=== PATIENT | female | born 1980 | race Caucasian/White ===

== ENCOUNTER 2019-12-07 16:56 | Emergency (ER) | payer OTHER, SELFPAY ==
[2019-12-07 17:06] VITALS: BP 119/76; PULSE 93; RESP 20; TEMP 37.4; O2SAT 98
--- NOTE | 2019-12-07 17:17 | DI.US.S_ITS ---
PROCEDURE: US ABDOMEN LIMITED INDICATIONS: RIGHT UPPER QUADRANT PAIN TECHNIQUE: Real-time focused scanning was performed of the abdomen, with image documentation. COMPARISON: [facility], CT, ABDOMEN/PELVIS WITH CONTRAST, 02/26/2016, 11:11. FINDINGS: The liver is normal in size. No focal liver lesions are identified. The echogenicity of the liver is symmetric when compared to the right kidney. No intrahepatic or extrahepatic biliary dilatation is identified. The common bile duct measures 4 mm in diameter. The gallbladder is normal in size without cholelithiasis. Borderline gallbladder wall thickening is present. There is no pericholecystic fluid. The patient did not exhibit a positive sonographic Dunaway sign. The pancreas is within normal limits. Imaged portions of the right kidney are unremarkable, but not adequately evaluated. There is no free fluid within the right upper quadrant. IMPRESSION: No cholelithiasis or convincing evidence of acute cholecystitis. Dictated by: Feng Guadalupe M.D. on 12/07/2019 at 16:48 Approved by: Feng Guadalupe M.D. on 12/07/2019 at 16:49
--- NOTE | 2019-12-07 17:21 | ED_ITS ---
HPI - Abdominal Pain <CHIO Allen - Last Filed: 12/07/19 18:54> General Chief Complaint: Abdominal Pain Stated Complaint: Abdominal pain for 5 weeks Time Seen by Provider: 12/07/19 17:08 Source: patient Mode of arrival: Ambulatory Limitations: no limitations History of Present Illness HPI narrative: The patient is a 39 year female nonsmoker who denies pertinent medical or surgical history presents with a chief complaint of right upper quadrant pain. She states has been going on for several weeks, but has recently become much worse. She states that she has nausea no vomiting, no diarrhea. She states her right upper quadrant pain is much worse after eating. She states that she is nauseous, but no vomiting. She states she has lost 10 or 15 lb recently because of inability to eat. She is concerned about her gallbladder as her parents have both had their gallbladders removed. She denies any fevers, but complains of slight muscle aches and chills. Related Data Previous Rx's Medication Instructions Recorded ondansetron 4 mg PO Q6H PRN #20 tab 12/07/19 tramadol 50 mg PO TID PRN #7 tab 12/07/19 Allergies Allergy/AdvReac Type Severity Reaction Status Date / Time No Known Allergies Allergy Uncoded 11/14/17 12:32 Review of Systems <CHIO Allen - Last Filed: 12/07/19 18:54> Review of Systems Narrative: GENERAL: Denies chills, fatigue, malaise, fever, sweats. HEENT: Denies sinus pain, ear pain, sore throat, difficulty swallowing, dizziness. RESPIRATORY: Denies dyspnea, cough, wheezing, hemoptysis, sputum. CARDIOVASCULAR: Denies chest pain, palpitations, orthopnea, edema, GASTROINTESTINAL: See HPI : Denies dysuria, frequency, incontinence, hematuria, urinary retention. MUSCULOSKELETAL: denies weakness, joint pain, or bony pain SKIN: Denies rash, skin lesions, or other NEUROLOGIC: Denies weakness, headache, numbness, change in speech, confusion, seizures, incoordination. PSYCHIATRIC: No concerning psychosocial issues. 12 point review of systems is negative except for those stated above Patient History <CHIO Allen - Last Filed: 12/07/19 18:54> Surgical History (Updated 12/04/17 @ 06:06 by Conversion Provider) History of third molar tooth extraction Social History Smoking Status: Never smoker Smoking Status: Never smoker Exam <CHIO Allen - Last Filed: 12/07/19 18:54> Narrative Exam Narrative: GENERAL: This is a well-nourished, well-developed patient, in no acute distress HEAD: Atraumatic. Normocephalic. No temporal or scalp tenderness. EYES: Pupils equal round and reactive. Extraocular motions intact. No scleral icterus. No injection or drainage. ENT: Nose without bleeding, purulent drainage or septal hematoma. Throat without erythema, tonsillar hypertrophy or exudate. Uvula midline. Airway patent. NECK: Trachea midline. No JVD or lymphadenopathy. Supple, nontender, no mening eal signs. CARDIOVASCULAR: Regular rate and rhythm RESPIRATORY: Clear to auscultation. Breath sounds equal bilaterally. No wheezes, rales, or rhonchi. No cough. No increased respiratory effort. No accessory muscle use. GASTROINTESTINAL: Abdomen soft, diffusely tender, nondistended. No hepato-sple nomegaly, or palpable masses. No guarding. Pain to palpation right upper quadrant EXTREMITIES: No clubbing, cyanosis, or edema. No joint tenderness, effusion, or edema noted. BACK: Nontender without deformity or crepitance. No flank tenderness. NEURO: AOx3. SKIN: No rash or erythema on visible skin Initial Vital Signs Initial Vital Signs: Vital Signs Temperature 99.3 F 12/07/19 17:06 Pulse Rate 93 H 12/07/19 17:06 Respiratory Rate 12/07/19 17:06 Blood Pressure 119/76 12/07/19 17:06 Pulse Oximetry 98 12/07/19 17:06 <Arlette Nesbitt DO - Last Filed: 12/11/19 07:15> Initial Vital Signs Initial Vital Signs: Vital Signs Temperature 99.3 F 12/07/19 17:06 Pulse Rate 93 H 12/07/19 17:06 Respiratory Rate 12/07/19 17:06 Blood Pressure 119/76 12/07/19 17:06 Pulse Oximetry 98 12/07/19 17:06 Scores <CHIO Allen - Last Filed: 12/07/19 18:54> GCS Rolando coma scale eye opening: Spontaneous Hays coma scale verbal response: Orientated Rolando coma scale motor response: Obey commands Hays coma scale total score: 15 Course <CHIO Allen - Last Filed: 12/07/19 18:54> Orders Ordered: Discontinued Medications Sodium Chloride (Normal Saline 0.9%) 1,000 mls @ 150 mls/hr IV CONT SHI Ondansetron HCl (Zofran) 4 mg IV NOW ONE Stop: 12/07/19 17:17 Vital Signs Vital signs: Vital Signs - 8 hr 12/07/19 17:06 Temperature 99.3 F Pulse Rate 93 H Respiratory Rate 20 Blood Pressure 119/76 Pulse Oximetry 98 <Arlette Nesbitt DO - Last Filed: 12/11/19 07:15> Orders Ordered: Discontinued Medications Sodium Chloride (Normal Saline 0.9%) 1,000 mls @ 150 mls/hr IV CONT SHI Ondansetron HCl (Zofran) 4 mg IV NOW ONE Stop: 12/07/19 17:17 Vital Signs Vital signs: Vital Signs - 8 hr 12/07/19 17:06 Temperature 99.3 F Pulse Rate 93 H Respiratory Rate 20 Blood Pressure 119/76 Pulse Oximetry 98 MDM - Abdominal Pain <CHIO Allen - Last Filed: 12/07/19 18:54> Differential Diagnosis Differential diagnosis: Likely abdominal pain and other Lab Data Result diagrams: 12/07/19 17:54 12/07/19 17:54 Labs: Lab Results 12/07/19 12/07/19 Range/Units 17:54 17:54 WBC 6.5 (4.5-11.0) X10^3/uL RBC 4.37 (4.0-5.2) X10^6/uL Hgb 13.2 (12.0-16.0) g/dL Hct 38.5 (36-46) % MCV 88.0 (80-100) fL MCH 30.2 (26-34) PG MCHC 34.4 (30-36) % RDW 12.5 (11.6-14.8) % Plt Count 225 (150-400) X10^3/uL Neut % (Auto) 60.6 (50-75) % Lymph % (Auto) 29.9 (25-40) % Mcdowell % (Auto) 7.6 (3-14) % Eos % (Auto) 0.8 L (2-4) % Baso % (Auto) 1.1 (0-2) % Neut # (Auto) 3900 (8434-5934) /uL Lymph # (Auto) 1900 (1739-1261) /uL Mcdowell # (Auto) 500 (0-900) /uL Eos # (Auto) 0 (0-450) /uL Baso # (Auto) 100 (0-100) /uL Sodium 139 (137-145) mmol/L Potassium 3.5 (3.4-5.1) mmol/L Chloride 106 (98-107) mmol/L Carbon Dioxide 25 (22-32) mmol/L BUN 15 (7-17) mg/dL Creatinine 1.01 (0.52-1.04) mg/dL Estimated GFR > 60.0 (>60) mL/min BUN/Creatinine Ratio 14.9 (6-22) Glucose 111 H (70-100) mg/dL Calcium 9.2 (8.4-10.2) mg/dL Total Bilirubin 0.4 (0.2-1.3) mg/dL AST 20 (14-36) IU/L ALT 12 (<35) IU/L Alkaline Phosphatase 40 (38-126) U/L Total Protein 7.2 (6.3-8.2) g/dL Albumin 4.3 (3.5-5.0) g/dL Globulin 2.9 (1.7-4.1) g/dL Albumin/Globulin Ratio 1.5 (1.0-2.8) Amylase 57 (30-110) U/L Lipase 88 (23-300) U/L Imaging Data US - abdomen: Radiologist's Impression: [facility] [address] [place] [id number] Ultrasound Report Signed Patient: Lia Cole TMR#: [id number] : 1980Acct:[id number] Age/Sex: 39 / FDate of Service: 12/07/19 Loc: ED Accession Number: [id number] Procedure: US abdomen limited Ordering Provider: Arlette Ramirez [facility] PROCEDURE: US ABDOMEN LIMITED INDICATIONS: RIGHT UPPER QUADRANT PAIN TECHNIQUE: Real-time focused scanning was performed of the abdomen, with image documentation. COMPARISON: [facility], CT, ABDOMEN/PELVIS WITH CONTRAST, 02/26/2016, 11:11. FINDINGS: The liver is normal in size. No focal liver lesions are identified. The echogenicity of the liver is symmetric when compared to the right kidney. No intrahepatic or extrahepatic biliary dilatation is identified. The common bile duct measures 4 mm in diameter. The gallbladder is normal in size without cholelithiasis. Borderline gallbladder wall thickening is present. There is no pericholecystic fluid. The patient did not exhibit a positive sonographic Dunaway sign. The pancreas is within normal limits. Imaged portions of the right kidney are unremarkable, but not adequately evaluated. There is no free fluid within the right upper quadrant. IMPRESSION: No cholelithiasis or convincing evidence of acute cholecystitis. Dictated by: Feng Guadalupe M.D. on 12/07/2019 at 16:48 Approved by: Feng Guadalupe M.D. on 12/07/2019 at 16:49 MDM Narrative Medical decision making narrative: The patient is a 39-year-old female who presents with a chief complaint of abdominal pain in her right upper quadrant off and on for about 5 weeks. She appears nontoxic in the emergency department has normal CBC, CMP, amylase lipase. Her right upper quadrant ultrasound comes back with no acute findings. Presentation is consistent with biliary colic. As her right upper quadrant pain is worse with eating, especially fatty foods. I encouraged her to follow up with primary care provider in the next few days, and come back to the emergency department for any acute concerns such as abdominal pain with fever, inability keep down fluids etcetera. <Arlette Nesbitt, - Last Filed: 12/11/19 07:15> Lab Data Labs: Lab Results 12/07/19 12/07/19 Range/Units 17:54 17:54 WBC 6.5 (4.5-11.0) X10^3/uL RBC 4.37 (4.0-5.2) X10^6/uL Hgb 13.2 (12.0-16.0) g/dL Hct 38.5 (36-46) % MCV 88.0 (80-100) fL MCH 30.2 (26-34) PG MCHC 34.4 (30-36) % RDW 12.5 (11.6-14.8) % Plt Count 225 (150-400) X10^3/uL Neut % (Auto) 60.6 (50-75) % Lymph % (Auto) 29.9 (25-40) % Mcdowell % (Auto) 7.6 (3-14) % Eos % (Auto) 0.8 L (2-4) % Baso % (Auto) 1.1 (0-2) % Neut # (Auto) 3900 (6771-4286) /uL Lymph # (Auto) 1900 (2396-4147) /uL Mcdowell # (Auto) 500 (0-900) /uL Eos # (Auto) 0 (0-450) /uL Baso # (Auto) 100 (0-100) /uL Sodium 139 (137-145) mmol/L Potassium 3.5 (3.4-5.1) mmol/L Chloride 106 (98-107) mmol/L Carbon Dioxide 25 (22-32) mmol/L BUN 15 (7-17) mg/dL Creatinine 1.01 (0.52-1.04) mg/dL Estimated GFR > 60.0 (>60) mL/min BUN/Creatinine Ratio 14.9 (6-22) Glucose 111 H (70-100) mg/dL Calcium 9.2 (8.4-10.2) mg/dL Total Bilirubin 0.4 (0.2-1.3) mg/dL AST 20 (14-36) IU/L ALT 12 (<35) IU/L Alkaline Phosphatase 40 (38-126) U/L Total Protein 7.2 (6.3-8.2) g/dL Albumin 4.3 (3.5-5.0) g/dL Globulin 2.9 (1.7-4.1) g/dL Albumin/Globulin Ratio 1.5 (1.0-2.8) Amylase 57 (30-110) U/L Lipase 88 (23-300) U/L Discharge Plan Departure Patient Disposition: Home Clinical Impression: Biliary colic Abdominal pain Qualifiers: Abdominal location: right upper quadrant Qualified Code(s): R10.11 - Right upper quadrant pain Discharge Date/Time: 12/07/19 19:01 Instructions: DI for Abdominal Pain-Adult, DI for Biliary Colic Activity Restrictions/Additional Instructions: Thank you for trusting us with your care today Your lab work and imaging came back mostly normal. As I discussed, biliary colic can cause episodic right upper quadrant pain, zully cially after eating. Please try a low fat diet with no alcohol, etc [facility] [place] I also sent a small prescription of pain medicine to [facility] in [place]. I have given you a prescription of a narcotic for pain. Be aware that this can be constipating and sedating. I encouraged taking with a stool softener, pushing fluids and fiber. Do not take and drive, operate heavy machinery, etc. Do not combine it with any other sedating substances such as alcohol. The combination of narcotics and alcohol and/or other sedatives can be lethal. Please be aware that we do not provide refills of controlled substances in the emergency department. Please follow-up with primary care provider in the next few days. Please come back to the emergency department for any acute concerns such as inability keep down fluids, abdominal pain with fever etcetera Prescriptions: New ondansetron 4 mg tablet,disintegrating 4 mg PO Q6H PRN (Reason: nausea and vomiting) Qty: 20 RF: 0 tramadol 50 mg tablet 50 mg PO TID PRN (Reason: pain) Qty: 7 RF: 0 Referrals: Suri Villa MD [Primary Care Provider] - Zayra Ovalle [Non-Staff] -
[2019-12-07 18:05] LABS: Add Manual Diff / Slide Review NO; Basophils Absolute Auto 100 /uL (0-100); Basophils Percent Auto 1.1 % (0-2); Eosinophils Absolute Auto 0 /uL (0-450); Eosinophils Percent Auto 0.8 % (2-4); Hematocrit 38.5 % (36-46); Hemoglobin 13.2 g/dL (12.0-16.0); Lymphocytes Absolute Auto 1900 /uL (1100-4500); Lymphocytes Percent Auto 29.9 % (25-40); Mean Corpuscular HGB Conc 34.4 % (30-36); Mean Corpuscular Hemoglobin 30.2 PG (26-34); Monocytes Absolute Auto 500 /uL (0-900); Monocytes Percent Auto 7.6 % (3-14); Neutrophils Absolute Auto 3900 /uL (1500-7000); Neutrophils Percent Auto 60.6 % (50-75); Platelet Count 225 X10^3/uL (150-400); Red Blood Cell Count 4.37 X10^6/uL (4.0-5.2); Red Cell Distribution Width 12.5 % (11.6-14.8); White Blood Cell Count 6.5 X10^3/uL (4.5-11.0)
[2019-12-07 18:38] LABS: Alanine Aminotransferase 12 IU/L (<35); Albumin 4.3 g/dL (3.5-5.0); Albumin Globulin Ratio 1.5 (1.0-2.8); Alkaline Phosphatase 40 U/L (38-126); Amylase 57 U/L (30-110); Aspartate Aminotransferase 20 IU/L (14-36); BUN Creatinine Ratio 14.9 (6-22); Bilirubin Total 0.4 mg/dL (0.2-1.3); Blood Urea Nitrogen 15 mg/dL (7-17); Calcium 9.2 mg/dL (8.4-10.2); Carbon Dioxide 25 mmol/L (22-32); Chloride 106 mmol/L (98-107); Estimated Glomerular Filt Rate > 60.0 mL/min (>60); Globulin 2.9 g/dL (1.7-4.1); Glucose 111 mg/dL (70-100); HEMOLYSIS 17 (0-50); Lipase 88 U/L (23-300); Potassium 3.5 mmol/L (3.4-5.1); Sodium 139 mmol/L (137-145); Total Protein 7.2 g/dL (6.3-8.2)
== END 2019-12-07 19:01 | disposition home or self-care (01) ==
PROVIDERS: Emergency Provider Nurse Practitioner Family; Family Provider Obstetrics & Gynecology; PCP Obstetrics & Gynecology
DX: K80.50 Calculus of bile duct without cholangitis or cholecystitis without obstruction (principal); R10.11 Right upper quadrant pain
CPT/HCPCS: 36415; 76705; 80053; 82150; 83690; 85025; 99284

== ENCOUNTER → 2019-12-08 10:08 | Outpatient (CLI) | payer OTHER, SELFPAY ==
--- NOTE | 2019-12-08 | DI.US.S_ITS ---
PROCEDURE: US ABDOMEN COMPLETE INDICATIONS: ABDOMEN PAIN TECHNIQUE: Real-time scanning was performed of the abdominal and retroperitoneal organs, with image documentation. COMPARISON: [facility], CT, ABDOMEN/PELVIS WITH CONTRAST, 02/26/2016, 11:11. [facility], US, US ABDOMEN LIMITED, 12/07/2019, 17:30. FINDINGS: Liver: Liver is normal in size and homogeneous in echotexture. Gallbladder: Small gallstones. No gallbladder wall thickening, pericholecystic fluid or sonographic Dunaway's sign. Biliary ducts: Intrahepatic bile ducts are non-dilated. Extrahepatic bile duct caliber measures 2 mm. Normal is 6-7 mm or less in diameter, or 10 mm or less post-cholecystectomy. Pancreas: Visualized portions of the pancreas are sonographically normal. Spleen: Spleen is normal in size and homogeneous in echotexture. Kidneys: Bilateral echogenic renal medulla. Kidneys are normal in size. Right kidney measures 10.2 cm long; left kidney measures 9.7 and cm long. No hydronephrosis or nephrolithiasis. No solid masses. Aorta: Visualized aorta is normal in caliber at less than 3 cm. Iliacs: Proximal common iliac arteries are normal in caliber at less than 2.5 cm. IVC: Intrahepatic inferior vena cava is patent. Miscellaneous: No free abdominal fluid. IMPRESSION: 1. Small gallstones in gallbladder. No ultrasound findings to suggest acute cholecystitis. 2. Echogenic renal medulla suggesting medullary calcinosis. Dictated by: Ross Peterson M.D. on 12/08/2019 at 11:15 Approved by: Ross Peterson M.D. on 12/08/2019 at 11:20
== END ==
PROVIDERS: Family Provider Obstetrics & Gynecology; PCP Obstetrics & Gynecology; Referring Provider Physician Assistant Medical; Visit Provider Physician Assistant Medical
DX: R10.9 Unspecified abdominal pain (principal); K80.20 Calculus of gallbladder without cholecystitis without obstruction
CPT/HCPCS: 76700

== ENCOUNTER → 2019-12-20 11:43 | Outpatient (CLI) | payer OTHER, SELFPAY ==
[2019-12-21 21:40] LABS: COVID19 Sendout Not Detected (Not Detect)
== END ==
PROVIDERS: Family Provider Obstetrics & Gynecology; PCP Obstetrics & Gynecology; Visit Provider Family Medicine
DX: Z11.59 Encounter for screening for other viral diseases (principal)
CPT/HCPCS: 87635

== ENCOUNTER 2019-12-23 06:46 | Day surgery (SDC) | payer OTHER, SELFPAY ==
[2019-12-18 10:34] VITALS: BMI 23.3
[2019-12-23] VITALS (12 sets, daily range): BP systolic 102–131; BP diastolic 64–81; PULSE 50–70; RESP 10–18; TEMP 36.4–37.2; O2SAT 97–100; BMI 22.8
--- NOTE | 2019-12-23 | PATH_ITS ---
[facility] Accession Number: [id number] . 01 Material submitted: . gallbladder - GALLBLADDER . 02 Diagnosis: Gallbladder, Cholecystectomy: Chronic cholecystitis with cholesterolosis. No calculi identified. No evidence of dysplasia or malignancy. . [facility] 12/25/2019 1224 Local . 02 Electronically signed: . Allyson Murguia MD, Pathologist NPI- [id number] . 01 Gross description: . GALLBLADDER: Received in formalin is an unopened gallbladder 5.0 cm in length and 2.5 cm in maximum fundic diameter. The non-hepatic serosa is smooth and shiny. The lumen contains brown bile and no stones stones. The mucosa is rough. The wall is 0.1 cm thick. Aquatic Facility Manager sections are submitted in 3 cassettes. /[facility] 12/24/2019 0918 Local . 02 Pathologist provided ICD-10: K81.1 . 02 CPT . 337935 Performed at: 01 [facility] [address] [facility], [place], [place] [id number] MD Ayad Rosales MD Phone: [phone] Performed at: 02 [facility] [address] [place], [place] [id number] MD Allyson Murguia MD Phone: [phone]
--- NOTE | 2019-12-23 07:27 | PM.PREOP ---
Pre-operative Note COVID-19 COVID-19 status: Negative Result date/Date tested (Pos, Neg/Pending): 12/20/19 Interval Note History & Physical reviewed/Exam performed by Physician: Yes Changes to H&P: No
[2019-12-23] MEDS: LACTATED RINGERS 1,000 ML 42 ML IV (07:38)
[2019-12-23] MEDS: SCOPOLAMINE 1 PATCH TOP (07:41)
[2019-12-23] MEDS: CEFAZOLIN 2 GM/100 ML FROZ.PIGGY IV (07:47)
[2019-12-23] MEDS: ACETAMINOPHEN IV 1,000 MG/100 ML VIAL 400 MG IV (07:55)
--- NOTE | 2019-12-23 08:17 | SUR.OPER ---
Supine on padded OR bed, head on pillow, safety belt at thigh, left arm padded and tucked at side. Right arm secured on padded arm oard <90 degrees abduction. Legs uncrossed. Padded footboard in place. Tape over blanket to secure lower legs.
[2019-12-23] MEDS: BUPIVACAINE 0.25% (PF) VIAL 30 ML INJ (08:23)
--- NOTE | 2019-12-23 09:14 | P.OP_ITS ---
Operative Date/Time/Diagnoses Date of procedure: 12/23/19 Time of procedure: 09:14 Pre-op diagnosis: Biliary colic, umbilical hernia Post-op diagnosis: same Procedure & Clinicians Procedure: Laparoscopic cholecystectomy, open umbilical hernia repair Same procedure as scheduled: Yes Indications: 39-year-old female with biliary colic and symptomatic umbilical hernia presents for repair. Surgeon: Eliot Epstein Click Yes if Unassisted: Yes Anesthesia Type: General Operative Notes Findings: 2 cm umbilical fascial defect, clips in place on the cystic duct and cystic artery. Specimen(s): other (Gallbladder) Estimated Blood Loss (mL): 20 Procedure in detail: The patient was brought to the operating room placed supine on the table. Bilateral lower extremity compression devices were applied. General anesthesia was induced and they were intubated with an endotracheal tube. They received 2g of Ancef prior to skin incision. A time-out was performed to ensure the correct patient procedure necessary equipment within the operating room. They were then prepped and draped in the usual sterile fashion. Infraumbilical incision was made the umbilical stalk was grasped and elevated and the fascia was sharply incised. The abdomen was entered atraumatically. A 10 mm trocar was then placed into the abdomen. Pneumoperitoneum was established. The laparoscopic camera was inserted into the abdomen inspection was made that demonstrated no evidence of injury upon entry. We then placed our working ports the 1st 11 mm port high in the epigastrium and then two 5mm in the right upper quadrant. The gallbladder was grasped and retracted over the liver and grasped laterally by the fundus. The Shelby gallbladder was grossly normal in its appearance. The triangle of Calot was exposed. The triangle of calot was then meticulosly skeletonized using hook electrocautery and demonstrated the cystic duct clearly entering the gallbladder the cystic artery and the liver and in the background. With the critical view of safety established the cystic duct was clipped twice proximally and once distally and then sharply divided and the cystic artery was taken in the same fashion. Next the gallbladder was removed from the liver bed using electro cautery. The liver bed was then inspected for hemostasis and this was achieved. The abdomen was irrigated with sterile saline and inspection was made that showed the clips in good position. The specimen was removed using Endo-Catch. The abdomen was desufflated. I extended the infraumbilical incision laterally in both directions. The subcutaneous tissues were divided. The umbilical hernia was identified and was dissected off the umbilicus and circumferentially. The umbilical hernia sac was opened carefully using Bulmaro and contained viable omentum. The hernia sac was then closed with 3 0 Vicryl suture. The sac was reduced into the abdomen and the fascia was cleared from above The fascial defect was 2 cm in diameter. The fascial edges were then reapproximated with a [id number] 0 Vicryl suture. The subcutaneous tissues were reapproximated using 3 0 Vicryl skin closed with 4 0 Monocryl upon by the application of Dermabond and Steri-Strips. Sponge instrument count at the end of the operation was correct. Patient tolerated procedure well was extubated and transferred to postoperative care unit in stable condition. Patient emerged from general anesthesia was extubated and transferred to the postoperative care unit missed stable condition. The sponge and instrument count at the end of the operation was correct. Complications: none Post-operative Condition: stable Disposition: same day surgery
[2019-12-23] MEDS: OXYCODONE IR 5 MG TABLET PO ×2 (09:38→10:37)
--- NOTE | 2019-12-23 09:40 | SUR.PHASEI ---
Gave patient po oxycodone for c/o pain.
--- NOTE | 2019-12-23 10:07 | SUR.PHASEII ---
Patient denies nausea. Tolerated po. Gave po pain medication prior for c/o pain. Went over discharge instructions with patient.
[2019-12-23] MEDS: METOCLOPRAMIDE 10 MG/2 ML INJ IV (10:20)
[2019-12-23] MEDS: ONDANSETRON 4 MG/2 ML INJ IV (10:20)
--- NOTE | 2019-12-23 10:22 | SUR.PHASEII ---
Gave antiemetics for c/o nausea.
--- NOTE | 2019-12-23 10:40 | SUR.PHASEII ---
Gave patient 2nd dose of pain medication for c/o pain in back and shoulder. Patient rates pain 8/10
[2019-12-23] MEDS: fentaNYL 100 MCG/2 ML INJ IV (10:47)
--- NOTE | 2019-12-23 11:51 | SUR.PHASEII ---
Patient states she is feeling better and would like to get dressed.
== END 2019-12-23 11:55 | disposition home or self-care (01) ==
PROVIDERS: Family Provider Obstetrics & Gynecology; Referring Provider Surgery; Visit Provider Surgery
PROC: 0FT44ZZ Resection of Gallbladder, Percutaneous Endoscopic Approach (ICD-10-PCS; CPT 47562; principal; 2019-12-23 07:45)
PROC: (CPT 47562; 2019-12-23 07:45)
DX: K81.1 Chronic cholecystitis (principal); K42.9 Umbilical hernia without obstruction or gangrene
CPT/HCPCS: 47562; 49585; J0131; J0690; J1100; J2250; J2405; J2704; J2765; J3010

== ENCOUNTER 2019-12-25 13:47 | Emergency (ER) | payer OTHER, SELFPAY ==
[2019-12-25 14:00] VITALS: BP 106/53; PULSE 57; RESP 16; TEMP 36.9; O2SAT 97; BMI 22.7
[2019-12-25] MEDS: SODIUM CHLORIDE 0.9% 1,000 ML 1000 ML IV ×2 (14:28→15:27)
[2019-12-25] MEDS: ONDANSETRON 4 MG/2 ML INJ IV (14:29)
[2019-12-25 14:31] LABS: Add Manual Diff / Slide Review NO; Basophils Absolute Auto 100 /uL (0-100); Basophils Percent Auto 0.8 % (0-2); Eosinophils Absolute Auto 0 /uL (0-450); Eosinophils Percent Auto 0.3 % (2-4); Hematocrit 35.3 % (36-46); Hemoglobin 12.4 g/dL (12.0-16.0); Lymphocytes Absolute Auto 700 /uL (1100-4500); Lymphocytes Percent Auto 11.4 % (25-40); Mean Corpuscular HGB Conc 35.2 % (30-36); Mean Corpuscular Hemoglobin 31.1 PG (26-34); Mean Corpuscular Volume 88.5 fL (80-100); Monocytes Absolute Auto 300 /uL (0-900); Monocytes Percent Auto 5.6 % (3-14); Neutrophils Absolute Auto 5100 /uL (1500-7000); Neutrophils Percent Auto 81.9 % (50-75); Platelet Count 246 X10^3/uL (150-400); Red Blood Cell Count 3.99 X10^6/uL (4.0-5.2); Red Cell Distribution Width 12.5 % (11.6-14.8); White Blood Cell Count 6.2 X10^3/uL (4.5-11.0)
[2019-12-25 14:40] LABS: Prothrombin Time 11.6 SECONDS (10.1-12.7)
[2019-12-25 14:42] LABS: PTT Partial Thromboplastin Tim 28 SECONDS (26.4-36.2)
[2019-12-25 14:51] LABS: Albumin Globulin Ratio 1.4 (1.0-2.8); Alkaline Phosphatase 102 U/L (38-126); Aspartate Aminotransferase 642 IU/L (14-36); BUN Creatinine Ratio 12.4 (6-22); Blood Urea Nitrogen 11 mg/dL (7-17); Calcium 8.9 mg/dL (8.4-10.2); Carbon Dioxide 28 mmol/L (22-32); Chloride 102 mmol/L (98-107); Estimated Glomerular Filt Rate > 60.0 mL/min (>60); Globulin 2.9 g/dL (1.7-4.1); Glucose 108 mg/dL (70-100); HEMOLYSIS < 15 (0-50); Lipase 64 U/L (23-300); Sodium 136 mmol/L (137-145); Total Protein 6.9 g/dL (6.3-8.2)
--- NOTE | 2019-12-25 14:51 | DI.RAD.S_ITS ---
PROCEDURE: XR ACUTE ABDOMEN SERIES INDICATIONS: post op abd pain, no bm TECHNIQUE: One view chest and two views of the abdomen were acquired. COMPARISON: [facility], , ABDOMEN COMPLETE, 12/08/2019, 10:25. FINDINGS: Surgical changes and devices: Cholecystectomy clips. Chest: Lungs are clear. Heart size is normal. No pleural effusions. Small volume of pneumoperitoneum under both hemidiaphragms. Abdomen: Scattered small bowel and colonic gas. No recommend CT abdomen and pelvis. loops of bowel identified. Mild prominence of the stool in the right and transverse colon. No air-fluid levels demonstrated. No suspicious calcifications. Visualized solid organ contours appear normal. Bones: No suspicious bony lesions. IMPRESSION: 1. No acute cardiopulmonary abnormality. 2. Small volume of pneumoperitoneum. This is most likely related to recent laparoscopic cholecystectomy. -If concern for underlying bowel injury, recommend CT abdomen and pelvis with IV contrast. 3. Nonobstructive bowel gas pattern. Prominent stool in the colon. Adynamic ileus is possible. Dictated by: Bj Quesada M.D. on 12/25/2019 at 15:22 Approved by: Bj Quesada M.D. on 12/25/2019 at 15:27
[2019-12-25 15:03] LABS: Alanine Aminotransferase 786 IU/L (<35)
[2019-12-25] MEDS: MORPHINE 2 MG/ML INJ IV (15:27)
--- NOTE | 2019-12-25 15:29 | DI.CT.S_ITS ---
PROCEDURE: CT ABDOMEN PELVIS W CON INDICATIONS: abd pain, elevated LFTs post russ TECHNIQUE: After the administration of oral and intravenous contrast, 5 mm thick sections acquired from the diaphragms to the symphysis. 5 mm thick coronal and sagittal reformats were performed. For radiation dose reduction, the following was used: automated exposure control, adjustment of mA and/or kV according to patient size. COMPARISON: [facility], CT, ABDOMEN/PELVIS WITH CONTRAST, 02/26/2016, 11:11. [facility], CR, XR ACUTE ABDOMEN SERIES, 12/25/2019, 14:54. [facility], US, US ABDOMEN COMPLETE, 12/08/2019, 10:25. FINDINGS: Image quality: Excellent. ABDOMEN: Lung bases: Lung bases are clear. Heart size is normal. Solid organs: Gallbladder has been removed. No significant abnormalities can be seen within the cholecystectomy bed. Liver is normal in size and enhancement. Biliary system is non-dilated. Pancreas enhances normally. Spleen is normal in size and enhancement. No adrenal nodules. Kidneys are normal in size and enhancement, without hydronephrosis. Peritoneum and bowel: Stomach, small bowel, and colon loops are normal in caliber and wall thickness. There is a moderate amount of stool seen within the colon. There is an expected amount of intraperitoneal postoperative gas. A small amount of free fluid can be seen. Nodes and vessels: No retroperitoneal or mesenteric adenopathy. Aorta and inferior vena cava are normal in caliber. Miscellaneous: No ventral hernias. PELVIS: Genitourinary: Bladder wall thickness is normal. The uterus appears normal for age. No adnexal masses are seen. Miscellaneous: No inguinal hernias or adenopathy. Bones: No suspicious bony lesions. No vertebral body compression fractures. IMPRESSION: Unremarkable post cholecystectomy CT, with postoperative changes seen. No biliary dilatation is seen. If there is strong clinical concern for a postoperative bile leak, then please consider a dedicated nuclear medicine HIDA scan for further evaluation. There is a moderate amount of stool seen within the colon. Please correlate with an underlying history of constipation. Dictated by: Bernardo Huang M.D. on 12/25/2019 at 15:38 Approved by: Bernardo Huang M.D. on 12/25/2019 at 15:41
--- NOTE | 2019-12-25 15:33 | PC.NURSE ---
PO contrast started at 1545
--- NOTE | 2019-12-25 15:56 | PM.CN ---
History of Present Illness Consult details Date Patient Seen: 12/25/19 Time Patient Seen: 15:45 Chief complaint: Pain after Gallbladder surgery Reason for consult: n/v after recent lap choly Narrative: The patient is a woman quite a laparoscopic cholecystectomy 2 days ago. According to the op report it was uneventful. She also had an umbilical hernia repaired at the same time. She was able eat a meal last night of regular food. The quantity was small. This morning 0 ever when she got up she had pain principally in her right shoulder and back. Took some pain medication and began vomiting and was uncontrollably nauseated. Before I could return calls from the operating room she had come into the emergency room for evaluation. She says she is feeling much better with some pain medication fluid. Meds Home Medications and Allergies Home Medications Medication Instructions Recorded Confirmed Type ondansetron 4 mg PO Q6H PRN #20 tab 12/07/19 12/23/19 Rx tramadol 50 mg PO TID PRN #7 tab 12/07/19 12/23/19 Rx oxycodone 5 mg PO Q6H PRN #30 tab 12/23/19 Rx Allergies Allergy/AdvReac Type Severity Reaction Status Date / Time No Known Drug Allergies Allergy Verified 12/25/19 14:00 Review of Systems Review of Systems Narrative: No cough or cold. No heart problems. Exam Vital Signs (past 8 hours): - 12/25/19 14:00 Temperature 98.4 F Pulse Rate 57 L Respiratory Rate 16 Blood Pressure 106/53 L Pulse Oximetry 97 Oxygen Delivery Method Room Air Narrative Exam Narrative: Cooperative no apparent distress. She has bruising about her umbilicus. There is no redness around any of the wounds. Her abdomen is soft and nontender when palpated away from her incisions. Objective Labs Result Diagrams: 12/25/19 14:17 12/25/19 14:17 Labs: Laboratory Results - last 24 hr 12/25/19 12/25/19 12/25/19 14:17 14:17 14:17 WBC 6.2 RBC 3.99 L Hgb 12.4 Hct 35.3 L MCV 88.5 MCH 31.1 MCHC 35.2 RDW 12.5 Plt Count 246 Neut % (Auto) 81.9 H Lymph % (Auto) 11.4 L Banner % (Auto) 5.6 Eos % (Auto) 0.3 L Baso % (Auto) 0.8 Neut # (Auto) 5100 Lymph # (Auto) 700 L Banner # (Auto) 300 Eos # (Auto) 0 Baso # (Auto) 100 PT 11.6 INR 1.0 APTT 28 Sodium 136 L Potassium 4.0 Chloride 102 Carbon Dioxide 28 BUN 11 Creatinine 0.89 Estimated GFR > 60.0 BUN/Creatinine Ratio 12.4 Glucose 108 H Calcium 8.9 Total Bilirubin 1.0 AST 642 H ALT 786 H Alkaline Phosphatase 102 Total Protein 6.9 Albumin 4.0 Globulin 2.9 Albumin/Globulin Ratio 1.4 Lipase 64 Assessment & Plan Assessment & Plan narrative: The only thing about her labs that concerns me is the marked elevation of her liver function tests. Her bilirubin and alk phos are normal. ALT and AST are elevated. Plain x-ray shows small amount of free air which is not unusual 2 days post lap choly. She has a fair amount of stool in her colon. Because of this marked elevation of her liver function tests have recommend the get a CT scan just to make sure nothing untoward is going on. I suspect this may just be related to her pain medication on an empty stomach. We can hydrate her in the emergency room it would be helpful. Await the CT report.
--- NOTE | 2019-12-25 16:34 | ED_ITS ---
HPI - Abdominal Pain <FRANCINE Allen-BC - Last Filed: 12/25/19 19:15> General Chief Complaint: Abdominal Pain Stated Complaint: Pain after Gallbladder surgery Time Seen by Provider: 12/25/19 14:26 Source: patient and family Mode of arrival: Ambulatory Limitations: no limitations History of Present Illness HPI narrative: The patient is a 39-year-old female nonsmoker with history of recent cholecystectomy on Sunday who presents with a chief complaint of abdominal pain, nausea and vomiting. She states she was not able to keep down any fluids at home. She states that she does not have a fever, has not moved her bowels surgery, states that her pain is generally well controlled, it is the nausea and vomiting that bring her to the emergency department today. The patient denies any dysuria urgency or frequency. She states that she called the on-call surgeon, and left a message with them. She states that she also had an umbilical hernia repaired on Sunday as well. Related Data Previous Rx's Medication Instructions Recorded ondansetron 4 mg PO Q6H PRN #20 tab 12/07/19 tramadol 50 mg PO TID PRN #7 tab 12/07/19 oxycodone 5 mg PO Q6H PRN #30 tab 12/23/19 ondansetron 4 mg PO Q6H PRN #14 tab 12/25/19 Allergies Allergy/AdvReac Type Severity Reaction Status Date / Time No Known Drug Allergies Allergy Verified 12/25/19 14:00 Review of Systems <CYNDI Allen - Last Filed: 12/25/19 19:15> Review of Systems Narrative: GENERAL: Denies chills, fatigue, malaise, fever, sweats. HEENT: Denies sinus pain, ear pain, sore throat, difficulty swallowing, dizziness. RESPIRATORY: Denies dyspnea, cough, wheezing, hemoptysis, sputum. CARDIOVASCULAR: Denies chest pain, palpitations, orthopnea, edema, GASTROINTESTINAL: See HPI : Denies dysuria, frequency, incontinence, hematuria, urinary retention. MUSCULOSKELETAL: denies weakness, joint pain, or bony pain SKIN: Denies rash, skin lesions, or other NEUROLOGIC: Denies weakness, headache, numbness, change in speech, confusion, seizures, incoordination. PSYCHIATRIC: No concerning psychosocial issues. 12 point review of systems is negative except for those stated above Patient History <CHIO Allen - Last Filed: 12/25/19 19:15> Medical History Cholelithiasis (Acute) Umbilical hernia (Acute) Surgical History History of third molar tooth extraction Social History household members: spouse Smoking Status: Never smoker alcohol intake: never Smoking Status: Never smoker Substance Use Type: does not use Exam <CHIO Allen - Last Filed: 12/25/19 19:15> Narrative Exam Narrative: GENERAL: This is a well-nourished, well-developed patient, appears uncomfortable HEAD: Atraumatic. Normocephalic. No temporal or scalp tenderness. EYES: Pupils equal round and reactive. Extraocular motions intact. No scleral icterus. No injection or drainage. ENT: Nose without bleeding, purulent drainage or septal hematoma. Throat without erythema, tonsillar hypertrophy or exudate. Uvula midline. Airway patent. NECK: Trachea midline. No JVD or lymphadenopathy. Supple, nontender, no meningeal signs. CARDIOVASCULAR: Regular rate and rhythm RESPIRATORY: Clear to auscultation. Breath sounds equal bilaterally. No wheezes, rales, or rhonchi. No cough. No increased respiratory effort. No accessory muscle use. GASTROINTESTINAL: Abdomen soft, diffusely tender to palpation, nondistended. No hepato-splenomegaly, or palpable masses. No guarding. Active bowel sounds all 4 quadrants. EXTREMITIES: No clubbing, cyanosis, or edema. No joint tenderness, effusion, or edema noted. BACK: Nontender without deformity or crepitance. No flank tenderness. NEURO: AOx3. SKIN: Postoperative right upper quadrant incisions clean dry and intact. Umbilical incision clean dry and intact with surrounding ecchymosis slightly. Initial Vital Signs Initial Vital Signs: Vital Signs Temperature 98.4 F 12/25/19 14:00 Pulse Rate 57 L 12/25/19 14:00 Respiratory Rate 16 12/25/19 14:00 Blood Pressure 106/53 L 12/25/19 14:00 Pulse Oximetry 97 12/25/19 14:00 <Ian Julian DO - Last Filed: 12/25/19 19:18> Initial Vital Signs Initial Vital Signs: Vital Signs Temperature 98.4 F 12/25/19 14:00 Pulse Rate 57 L 12/25/19 14:00 Respiratory Rate 16 12/25/19 14:00 Blood Pressure 106/53 L 12/25/19 14:00 Pulse Oximetry 97 12/25/19 14:00 Scores <CHIO Allen - Last Filed: 12/25/19 19:15> GCS Rolando coma scale eye opening: Spontaneous Rolando coma scale verbal response: Orientated [place] coma scale motor response: Obey commands Rolando coma scale total score: 15 Course <CHIO Allen - Last Filed: 12/25/19 19:15> Orders Ordered: ED Orders 12/25/19 14:17 Complete Blood Count AUTO DIFF Stat Comprehensive Metabolic Panel Stat Lipase Stat Partial Thromboplastin Time Stat Prothrombin Time INR Stat 12/25/19 14:51 XR acute abdomen series Stat 12/25/19 15:29 CT abdomen pelvis w con Stat Discontinued Medications Sodium Chloride (Normal Saline 0.9%) 1,000 mls @ 1,000 mls/hr IV BOLUS ONE Stop: 12/25/19 15:25 Last Infusion: 12/25/19 15:31 Dose: 0 mls/hr Documented by: Admin: 12/25/19 14:28 Dose: 1,000 mls/hr Documented by: RG Sodium Chloride (Normal Saline 0.9%) 1,000 mls @ 1,000 mls/hr IV BOLUS ONE Stop: 12/25/19 16:22 Last Infusion: 12/25/19 18:06 Dose: 0 mls/hr Documented by: Admin: 12/25/19 15:27 Dose: 1,000 mls/hr Documented by: RG Morphine Sulfate (Morphine) 2 mg IV NOW ONE Stop: 12/25/19 15:23 Last Admin: 12/25/19 15:27 Dose: 2 mg Documented by: RG Ondansetron HCl (Zofran) 4 mg IV NOW ONE Stop: 12/25/19 14:24 Last Admin: 12/25/19 14:29 Dose: 4 mg Documented by: RG Vital Signs Vital signs: Vital Signs - 8 hr 12/25/19 14:00 12/25/19 18:18 Temperature 98.4 F Pulse Rate 57 L 55 L Respiratory Rate 16 14 Blood Pressure 106/53 L Blood Pressure [Left Arm] 113/70 Pulse Oximetry 97 100 <Ian Julian DO - Last Filed: 12/25/19 19:18> Orders Ordered: ED Orders 12/25/19 14:17 Complete Blood Count AUTO DIFF Stat Comprehensive Metabolic Panel Stat Lipase Stat Partial Thromboplastin Time Stat Prothrombin Time INR Stat 12/25/19 14:51 XR acute abdomen series Stat 12/25/19 15:29 CT abdomen pelvis w con Stat Discontinued Medications Sodium Chloride (Normal Saline 0.9%) 1,000 mls @ 1,000 mls/hr IV BOLUS ONE Stop: 12/25/19 15:25 Last Infusion: 12/25/19 15:31 Dose: 0 mls/hr Documented by: Admin: 12/25/19 14:28 Dose: 1,000 mls/hr Documented by: RG Sodium Chloride (Normal Saline 0.9%) 1,000 mls @ 1,000 mls/hr IV BOLUS ONE Stop: 12/25/19 16:22 Last Infusion: 12/25/19 18:06 Dose: 0 mls/hr Documented by: Admin: 12/25/19 15:27 Dose: 1,000 mls/hr Documented by: RG Morphine Sulfate (Morphine) 2 mg IV NOW ONE Stop: 12/25/19 15:23 Last Admin: 12/25/19 15:27 Dose: 2 mg Documented by: RG Ondansetron HCl (Zofran) 4 mg IV NOW ONE Stop: 12/25/19 14:24 Last Admin: 12/25/19 14:29 Dose: 4 mg Documented by: RG Vital Signs Vital signs: Vital Signs - 8 hr 12/25/19 14:00 12/25/19 18:18 Temperature 98.4 F Pulse Rate 57 L 55 L Respiratory Rate 16 14 Blood Pressure 106/53 L Blood Pressure [Left Arm] 113/70 Pulse Oximetry 97 100 MDM - Abdominal Pain <CYNDI AllenBC - Last Filed: 12/25/19 19:15> Lab Data Result diagrams: 12/25/19 14:17 12/25/19 14:17 Labs: Lab Results 12/25/19 12/25/19 12/25/19 Range/Units 14:17 14:17 14:17 WBC 6.2 (4.5-11.0) X10^3/uL RBC 3.99 L (4.0-5.2) X10^6/uL Hgb 12.4 (12.0-16.0) g/dL Hct 35.3 L (36-46) % MCV 88.5 (80-100) fL MCH 31.1 (26-34) PG MCHC 35.2 (30-36) % RDW 12.5 (11.6-14.8) % Plt Count 246 (150-400) X10^3/uL Neut % (Auto) 81.9 H (50-75) % Lymph % (Auto) 11.4 L (25-40) % [place] % (Auto) 5.6 (3-14) % Eos % (Auto) 0.3 L (2-4) % Baso % (Auto) 0.8 (0-2) % Neut # (Auto) 5100 (2769-9276) /uL Lymph # (Auto) 700 L (5872-4675) /uL [place] # (Auto) 300 (0-900) /uL Eos # (Auto) 0 (0-450) /uL Baso # (Auto) 100 (0-100) /uL PT 11.6 (10.1-12.7) SECONDS INR 1.0 (0.9-1.3) APTT 28 (26.4-36.2) SECONDS Sodium 136 L (137-145) mmol/L Potassium 4.0 (3.4-5.1) mmol/L Chloride 102 (98-107) mmol/L Carbon Dioxide 28 (22-32) mmol/L BUN 11 (7-17) mg/dL Creatinine 0.89 (0.52-1.04) mg/dL Estimated GFR > 60.0 (>60) mL/min BUN/Creatinine Ratio 12.4 (6-22) Glucose 108 H (70-100) mg/dL Calcium 8.9 (8.4-10.2) mg/dL Total Bilirubin 1.0 (0.2-1.3) mg/dL AST 642 H (14-36) IU/L ALT 786 H (<35) IU/L Alkaline Phosphatase 102 (38-126) U/L Total Protein 6.9 (6.3-8.2) g/dL Albumin 4.0 (3.5-5.0) g/dL Globulin 2.9 (1.7-4.1) g/dL Albumin/Globulin Ratio 1.4 (1.0-2.8) Lipase 64 (23-300) U/L Point of care testing: Point of Care Testing Test Results Negative Urine Dip Bedside Urine Glucose Negative Bedside Urine Bilirubin - Negative Bedside Urine Ketone - Negative Urine Specific [place] 1.015 Bedside Urine Occult Blood - Negative Bedside Urine pH 6.0 Bedside Urine Protein - Negative Bedside Urine Urobilinogen - Negative Bedside Urine Nitrite - Negative Bedside Urine Leukocytes - Negative Esterase Imaging Data Abdominal x-ray: Radiologist's Impression: [address] [place] [id number] XRay Report Signed Patient: Lia Cole TMR#: [id number] : 1980Acct:[id number] Age/Sex: 39 / FDate of Service: 12/25/19 Loc: ED Accession Number: [id number] Procedure: XR acute abdomen series Ordering Provider: Arlette Ramirez PROCEDURE: XR ACUTE ABDOMEN SERIES INDICATIONS: post op abd pain, no bm TECHNIQUE: One view chest and two views of the abdomen were acquired. COMPARISON: [facility], , ABDOMEN COMPLETE, 12/08/2019, 10:25. FINDINGS: Surgical changes and devices: Cholecystectomy clips. Chest: Lungs are clear. Heart size is normal. No pleural effusions. Small volume of pneumoperitoneum under both hemidiaphragms. Abdomen: Scattered small bowel and colonic gas. No recommend CT abdomen and pelvis. loops of bowel identified. Mild prominence of the stool in the right and transverse colon. No air-fluid levels demonstrated. No suspicious calcifications. Visualized solid organ contours appear normal. Bones: No suspicious bony lesions. IMPRESSION: 1. No acute cardiopulmonary abnormality. 2. Small volume of pneumoperitoneum. This is most likely related to recent lapar oscopic cholecystectomy. -If concern for underlying bowel injury, recommend CT abdomen and pelvis with IV contrast. 3. Nonobstructive bowel gas pattern. Prominent stool in the colon. Adynamic ileus is possible. Dictated by: Bj Quesada M.D. on 12/25/2019 at 15:22 Approved by: Bj Quesada M.D. on 12/25/2019 at 15:27 CT scan - abdomen/pelvis: Radiologist's Impression: [address] [place] [id number] Scan Report Signed Patient: Lia Cole TMR#: [id number] : 1980Acct:[id number] Age/Sex: 39 / FDate of Service: 12/25/19 Loc: ED Accession Number: [id number] Procedure: CT abdomen pelvis w con Ordering Provider: Arlette Ramirez MOLDED CANDLES WICKER-BC PROCEDURE: CT ABDOMEN PELVIS W CON INDICATIONS: abd pain, elevated LFTs post russ TECHNIQUE: After the administration of oral and intravenous contrast, 5 mm thick sections acquired from the diaphragms to the symphysis. 5 mm thick coronal and sagittal reformats were performed. For radiation dose reduction, the following was used: automated exposure control, adjustment of mA and/or kV according to patient size. COMPARISON: [facility], CT, ABDOMEN/PELVIS WITH CONTRAST, 02/26/2016, 11:11. [facility], CR, XR ACUTE ABDOMEN SERIES, 12/25/2019, 14:54. [facility], US, US ABDOMEN COMPLETE, 12/08/2019, 10:25. FINDINGS: Image quality: Excellent. ABDOMEN: Lung bases: Lung bases are clear. Heart size is normal. Solid organs: Gallbladder has been removed. No significant abnormalities can be seen within the cholecystectomy bed. Liver is normal in size and enhancement. Biliary system is non-dilated. Pancreas enhances normally. Spleen is normal in size and enhancement. No adrenal nodules. Kidneys are normal in size and enhancement, without hydronephrosis. Peritoneum and bowel: Stomach, small bowel, and colon loops are normal in caliber and wall thickness. There is a moderate amount of stool seen within the colon. There is an expected amount of intraperitoneal postoperative gas. A small amount of free fluid can be seen. Nodes and vessels: No retroperitoneal or mesenteric adenopathy. Aorta and inferior vena cava are normal in caliber. Miscellaneous: No ventral hernias. PELVIS: Genitourinary: Bladder wall thickness is normal. The uterus appears normal for age. No adnexal masses are seen. Miscellaneous: No inguinal hernias or adenopathy. Bones: No suspicious bony lesions. No vertebral body compression fractures. IMPRESSION: Unremarkable post cholecystectomy CT, with postoperative changes seen. No biliary dilatation is seen. If there is strong clinical concern for a postoperative bile leak, then please consider a dedicated nuclear medicine HIDA scan for further evaluation. There is a moderate amount of stool seen within the colon. Please correlate with an underlying history of constipation. Dictated by: Bernardo Huang M.D. on 12/25/2019 at 15:38 Approved by: Bernardo Huang M.D. on 12/25/2019 at 15:41 MDM Narrative Medical decision making narrative: The patient is a 39-year-old female who presents with a chief complaint of postoperative abdominal pain nausea and vomiting. She noted to have elevated LFTs. Spoke with surgery, who came down and evaluated the patient. CT scan was ordered for recommendations. No acute findings. Dr. Montes again evaluated and spoke with the patient. Patient is able to tolerate p.o. fluids, discussed further nausea medication at home, patient elected to get a prescription for more Zofran. I discussed at length not taking pain medication on an empty stomach, preemptively taking Zofran, etc etera. Encouraged follow-up with primary care provider as well as surgery. Patient has no questions or concerns upon discharge and states understanding of return precautions of any acute concerns and follow-up care. <Ian Julian, DO - Last Filed: 12/25/19 19:18> Lab Data Labs: Lab Results 12/25/19 12/25/19 12/25/19 Range/Units 14:17 14:17 14:17 WBC 6.2 (4.5-11.0) X10^3/uL RBC 3.99 L (4.0-5.2) X10^6/uL Hgb 12.4 (12.0-16.0) g/dL Hct 35.3 L (36-46) % MCV 88.5 (80-100) fL MCH 31.1 (26-34) PG MCHC 35.2 (30-36) % RDW 12.5 (11.6-14.8) % Plt Count 246 (150-400) X10^3/uL Neut % (Auto) 81.9 H (50-75) % Lymph % (Auto) 11.4 L (25-40) % [place] % (Auto) 5.6 (3-14) % Eos % (Auto) 0.3 L (2-4) % Baso % (Auto) 0.8 (0-2) % Neut # (Auto) 5100 (3407-0661) /uL Lymph # (Auto) 700 L (5430-2687) /uL [place] # (Auto) 300 (0-900) /uL Eos # (Auto) 0 (0-450) /uL Baso # (Auto) 100 (0-100) /uL PT 11.6 (10.1-12.7) SECONDS INR 1.0 (0.9-1.3) APTT 28 (26.4-36.2) SECONDS Sodium 136 L (137-145) mmol/L Potassium 4.0 (3.4-5.1) mmol/L Chloride 102 (98-107) mmol/L Carbon Dioxide 28 (22-32) mmol/L BUN 11 (7-17) mg/dL Creatinine 0.89 (0.52-1.04) mg/dL Estimated GFR > 60.0 (>60) mL/min BUN/Creatinine Ratio 12.4 (6-22) Glucose 108 H (70-100) mg/dL Calcium 8.9 (8.4-10.2) mg/dL Total Bilirubin 1.0 (0.2-1.3) mg/dL AST 642 H (14-36) IU/L ALT 786 H (<35) IU/L Alkaline Phosphatase 102 (38-126) U/L Total Protein 6.9 (6.3-8.2) g/dL Albumin 4.0 (3.5-5.0) g/dL Globulin 2.9 (1.7-4.1) g/dL Albumin/Globulin Ratio 1.4 (1.0-2.8) Lipase 64 (23-300) U/L Point of care testing: Point of Care Testing Test Results Negative Urine Dip Bedside Urine Glucose Negative Bedside Urine Bilirubin - Negative Bedside Urine Ketone - Negative Urine Specific [place] 1.015 Bedside Urine Occult Blood - Negative Bedside Urine pH 6.0 Bedside Urine Protein - Negative Bedside Urine Urobilinogen - Negative Bedside Urine Nitrite - Negative Bedside Urine Leukocytes - Negative Esterase Discharge Plan Departure Patient Disposition: Home Clinical Impression: Post-operative nausea and vomiting Abdominal pain Qualifiers: Abdominal location: generalized Qualified Code(s): R10.84 - Generalized abdominal pain Discharge Date/Time: 12/25/19 18:32 Instructions: DI for Abdominal Pain-Adult, DI for Nausea -- Adult, Nausea and Vomiting-Adult Activity Restrictions/Additional Instructions: Thank you for trusting us with your care today As discussed, I would like you to follow-up with primary care provider as well as Dr. Epstein. Your liver enzymes were slightly elevated, this will need to be monitored. Dr. Montes from [facility], Dr. Epstein's colleague saw you in the emergency department today I sent a prescription of Zofran to [facility] in [place] Please come back to the emergency department for any acute concerns such as i nability keep down fluids Prescriptions: New ondansetron 4 mg tablet,disintegrating 4 mg PO Q6H PRN (Reason: nausea and vomiting) Qty: 14 RF: 0 No Action ondansetron 4 mg tablet,disintegrating 4 mg PO Q6H PRN (Reason: nausea and vomiting) Qty: 20 RF: 0 tramadol 50 mg tablet 50 mg PO TID PRN (Reason: pain) Qty: 7 RF: 0 oxycodone 5 mg tablet 5 mg PO Q6H PRN (Reason: pain) Qty: 30 RF: 0 Referrals: Eliot Epstein MD [Physician] - Zayra Ovalle [Primary Care Provider] - <Ian Julian DO - Last Filed: 12/25/19 19:18> Cosign ED Attending Cosignature Attestation: Dr Julian Co-Sign Statement: I was be ryder for consultation during this patient's emergency department visit. This chart is signed by myself for administrative purposes only. I did not have direct contact with this patient during this visit. They were seen independently by the APC.
[2019-12-25 18:18] VITALS: BP 113/70; PULSE 55; RESP 14; O2SAT 100
== END 2019-12-25 18:32 | disposition home or self-care (01) ==
PROVIDERS: Emergency Medicine; Emergency Provider Nurse Practitioner Family; Family Provider Obstetrics & Gynecology; PCP Physician Assistant Medical
DX: G89.18 Other acute postprocedural pain (principal); R11.2 Nausea with vomiting, unspecified; R10.84 Generalized abdominal pain
CPT/HCPCS: 36415; 74022; 74177; 80053; 81003; 81025; 83690; 85025; 85610; 85730; 96361; 96374; 96375; 99284; 99285; J2270; J2405

== ENCOUNTER 2020-05-16 11:36 | Emergency (ER) | payer OTHER, SELFPAY ==
[2020-05-16] VITALS (8 sets, daily range): BP systolic 107–115; BP diastolic 60–88; PULSE 64–98; RESP 12–18; TEMP 36.8; O2SAT 81–98; BMI 23.5
--- NOTE | 2020-05-16 12:03 | PC.NURSE ---
patient states 2 years of shakiness in her right brain after having a sinus infection. She since has been given a rx for zofran for nausea. She states that when she turns her head or lays flat she becomes extremely anxious.
--- NOTE | 2020-05-16 12:06 | ED.NEUROSD ---
HPI - Neuro Symptoms/Deficit General Chief Complaint: Neuro Symptoms/Deficit Stated Complaint: neuro issues, nausea, shakiness Time Seen by Provider: 05/16/20 11:56 Source: patient Mode of arrival: Ambulatory Limitations: no limitations History of Present Illness HPI Narrative: This is a 39-year-old female comes emergency department with complaint of ?neuro issues?. Patient states for the last several years she has felt shaky inside her head more on the right side but also sort of centrally. She states over the last couple weeks it seems like it has extended down her neck towards her chest. She states she does get headaches usually was in the back but she also sometimes has on the right side. She states these were cluster headaches but that this feels different. She states that sometimes her eyes feel like they are shaking. She has had nausea but no vomiting. She has not had any other vision changes. No difficulty with speech, no weakness or numbness appreciated other than sometimes she stumbles more she thinks on the right side. She states she is not sure if this is because she is noticing it or if it is truly happening. She has not had any falls. She has not had any localized weakness that she appreciates. She has not had any tingling. No urinary incontinence or bowel issues. She is seen occasionally for what sounds like hyper emesis and has been taking Zofran regularly. She saw ENT and was told she does not have vertigo after testing. They suspect possibly a neurologic cause. Her primary care physician gave her referral for Neurology at [facility] 2 weeks ago but she was told it will be a year before she is seen. She was seen at [facility] 7 or 8 years ago and had an MRI and evaluation for MS but was told that this was negative at that time. She has not followed up with that Neurology team since. She has had a cholecystectomy. She denies any other drug allergies. No tobacco, alcohol or illicit. On Anticoagulants: No Related Data Previous Rx's Medication Instructions Recorded ondansetron 4 mg PO Q6H PRN #20 tab 12/07/19 tramadol 50 mg PO TID PRN #7 tab 12/07/19 oxycodone 5 mg PO Q6H PRN #30 tab 12/23/19 ondansetron 4 mg PO Q6H PRN #14 tab 12/25/19 sulfamethoxazole 800 1 tab PO Q12H #14 tab 01/07/20 mg-trimethoprim 160 mg tablet Allergies Allergy/AdvReac Type Severity Reaction Status Date / Time No Known Drug Allergies Allergy Verified 01/14/20 10:19 Review of Systems Review of Systems ROS Unobtainable: All systems reviewed & are unremarkable except as noted in HPI and below Patient History Medical History Cholelithiasis (Acute) Umbilical hernia (Acute) Surgical History History of third molar tooth extraction Social History household members: spouse Smoking Status: Never smoker alcohol intake: never Smoking Status: Never smoker Substance Use Type: does not use Exam Narrative Exam Narrative: GEN: well nourished, well appearing female, alert and oriented x 3, patient appears to be in mild distress. Patient does appear anxious. HEENT: Atraumatic, pupils are equal round reactive to light, extraocular movements are intact, nares are clear, TMs are clear with no fluid, there is no conjunctival pallor. Throat is clear without any exudates, erythema, tonsillar enlargement or uvular deviation, no facial droop. Clear speech. HEART: Regular rate and rhythm without murmur, clicks, rubs. Pulses are equal in upper extremities LUNGS:Lungs clear to auscultation, no wheezes, rales, crackles, chest moves symmetrically, no tachypnea accessory muscle use. ABD:bowel sounds normal, soft, non-tender, no guarding, rebound, rigidity, no masses noted, no hepatosplenomegaly :No CVA tenderness MSCL: Non-tender, no muscle atrophy, muscles strength 5/5 upper and lower extremities, full range of motion, normal gait NEURO:CN 2-12 intact, sensation normal, reflexes 2/4 upper and lower extremities. finger nose finger test normal, heel valenzuela test normal SKIN: No rash, no petechiae or bruising. Initial Vital Signs Initial Vital Signs: Vital Signs Pulse Rate 91 H 05/16/20 11:43 Pulse Oximetry 97 05/16/20 11:43 Scores NIH Stroke Scale Level of Conciousness: Alert, keenly responsive Ask month/age: Answers both questions correctly. Open/close eyes, close hand: Performs both tasks correctly Best gaze horizontal: Normal Visual saab: No visual loss Facial palsy: Normal symetrical movement Left arm drift: No drift for full 10 sec Right arm drift: No drift for full 10 sec Left leg drift: No drift for full 5 sec Right leg drift: No drift for full 5 sec Limb ataxia: Absent Sensory on face/arms/legs: Normal, no sensory loss Best language: No aphasia, normal Dysarthria: Normal Extinction or inattention: No abnormality Total NIH Stroke scale score: 0 Course Orders Ordered: ED Orders 05/16/20 12:21 CT angio head and neck Stat 05/16/20 12:35 Complete Blood Count AUTO DIFF Stat Comprehensive Metabolic Panel Stat Ethanol (ETOH) Stat Thyroid Stimulating Hormone Stat 05/16/20 13:36 Urine Drug Screen, Rapid Stat Vital Signs Vital signs: Vital Signs - 8 hr 05/16/20 11:43 05/16/20 11:46 05/16/20 11:56 Temperature 98.2 F Pulse Rate 91 H 98 H 95 H Respiratory Rate 12 Blood Pressure 115/88 115/88 Pulse Oximetry 97 96 96 05/16/20 12:00 05/16/20 12:30 05/16/20 13:02 Temperature Pulse Rate 83 68 93 H Respiratory Rate Blood Pressure Pulse Oximetry 96 97 81 L 05/16/20 13:30 05/16/20 13:43 Temperature Pulse Rate 70 64 Respiratory Rate 18 Blood Pressure 107/60 Pulse Oximetry 98 98 MDM - Neuro Symptoms/Deficit Lab Data Attestation: I reviewed the patient's lab results. Result diagrams: 05/16/20 12:35 05/16/20 12:35 Labs: Lab Results 05/16/20 05/16/20 05/16/20 Range/Units 12:35 12:35 12:35 WBC 5.3 (4.5-11.0) X10^3/uL RBC 4.26 (4.0-5.2) X10^6/uL Hgb 12.9 (12.0-16.0) g/dL Hct 38.0 (36-46) % MCV 89.2 (80-100) fL MCH 30.2 (26-34) PG MCHC 33.8 (30-36) % RDW 12.6 (11.6-14.8) % Plt Count 253 (150-400) X10^3/uL Neut % (Auto) 67.5 (50-75) % Lymph % (Auto) 24.2 L (25-40) % [place] % (Auto) 6.5 (3-14) % Eos % (Auto) 0.8 L (2-4) % Baso % (Auto) 1.0 (0-2) % Neut # (Auto) 3600 (7673-9476) /uL Lymph # (Auto) 1300 (2663-0324) /uL [place] # (Auto) 300 (0-900) /uL Eos # (Auto) 0 (0-450) /uL Baso # (Auto) 100 (0-100) /uL Sodium 138 (137-145) mmol/L Potassium 4.3 (3.4-5.1) mmol/L Chloride 107 (98-107) mmol/L Carbon Dioxide 27 (22-32) mmol/L BUN 11 (7-17) mg/dL Creatinine 0.73 (0.52-1.04) mg/dL Estimated GFR > 60.0 (>60) mL/min BUN/Creatinine Ratio 15.1 (6-22) Glucose 89 (70-100) mg/dL Calcium 9.1 (8.4-10.2) mg/dL Total Bilirubin 0.6 (0.2-1.3) mg/dL AST 20 (14-36) IU/L ALT 11 (<35) IU/L Alkaline Phosphatase 44 (38-126) U/L Total Protein 6.9 (6.3-8.2) g/dL Albumin 4.2 (3.5-5.0) g/dL Globulin 2.7 (1.7-4.1) g/dL Albumin/Globulin Ratio 1.6 (1.0-2.8) TSH 1.17 (0.47-4.68) uIU/mL U Opiates 300ng/mL cut (Negative) Ur Oxycodone Screen (Negative) Urine Methadone Screen (Negative) Ur Barbiturates Screen (Negative) U Tricyclic Antidepress (Negative) Ur Phencyclidine Scrn (Negative) Ur Amphetamines Screen (Negative) U Methamphetamines Scrn (Negative) Ur MDMA Scrn (Ecstasy) (Negative) U Benzodiazepines Scrn (Negative) Urine Cocaine Screen (Negative) U Marijuana (THC) Screen (Negative) Ethyl Alcohol < 10 ( - 10) mg/dL 05/16/20 Range/Units 13:36 WBC (4.5-11.0) X10^3/uL RBC (4.0-5.2) X10^6/uL Hgb (12.0-16.0) g/dL Hct (36-46) % MCV (80-100) fL MCH (26-34) PG MCHC (30-36) % RDW (11.6-14.8) % Plt Count (150-400) X10^3/uL Neut % (Auto) (50-75) % Lymph % (Auto) (25-40) % [place] % (Auto) (3-14) % Eos % (Auto) (2-4) % Baso % (Auto) (0-2) % Neut # (Auto) (9190-6837) /uL Lymph # (Auto) (2211-2754) /uL [place] # (Auto) (0-900) /uL Eos # (Auto) (0-450) /uL Baso # (Auto) (0-100) /uL Sodium (137-145) mmol/L Potassium (3.4-5.1) mmol/L Chloride (98-107) mmol/L Carbon Dioxide (22-32) mmol/L BUN (7-17) mg/dL Creatinine (0.52-1.04) mg/dL Estimated GFR (>60) mL/min BUN/Creatinine Ratio (6-22) Glucose (70-100) mg/dL Calcium (8.4-10.2) mg/dL Total Bilirubin (0.2-1.3) mg/dL AST (14-36) IU/L ALT (<35) IU/L Alkaline Phosphatase (38-126) U/L Total Protein (6.3-8.2) g/dL Albumin (3.5-5.0) g/dL Globulin (1.7-4.1) g/dL Albumin/Globulin Ratio (1.0-2.8) TSH (0.47-4.68) uIU/mL U Opiates 300ng/mL cut Negative (Negative) Ur Oxycodone Screen Negative (Negative) Urine Methadone Screen Negative (Negative) Ur Barbiturates Screen Negative (Negative) U Tricyclic Antidepress Negative (Negative) Ur Phencyclidine Scrn Negative (Negative) Ur Amphetamines Screen Negative (Negative) U Methamphetamines Scrn Negative (Negative) Ur MDMA Scrn (Ecstasy) Negative (Negative) U Benzodiazepines Scrn Negative (Negative) Urine Cocaine Screen Negative (Negative) U Marijuana (THC) Screen Negative (Negative) Ethyl Alcohol ( - 10) mg/dL Point of Care Testing Test Results Negative Urine Dip Bedside Urine Glucose Negative Bedside Urine Bilirubin - Negative Bedside Urine Ketone - Negative Urine Specific [place] 1.010 Bedside Urine Occult Blood - Negative Bedside Urine pH 6.5 Bedside Urine Protein - Negative Bedside Urine Urobilinogen - Negative Bedside Urine Nitrite - Negative Bedside Urine Leukocytes - Negative Esterase Imaging Data CTA - brain/neck: Radiologist's Impression: [address] [address] [address] Scan Report Signed Patient: Lia Cole TMR#: [id number] : 1980Acct:[id number] Age/Sex: 39 / FDate of Service: 05/16/20 Loc: ED Accession Number: [id number] Procedure: CT angio head and neck Ordering Provider: Arlette Nesbitt D.O. PROCEDURE: CT ANGIO HEAD AND NECK INDICATIONS: shakiness in head and neck, more on right. History of distant trauma. TECHNIQUE: Pre-contrast 4.5 mm thick sections acquired from the foramen magnum to the vertex. After the administration of intravenous contrast, 1 mm thick sections acquired from the aortic arch through the [place] of [place]. Post-contrast 4.5 mm thick sections then re-acquired from the foramen magnum to the vertex. 3-dimensional wnjcqat-lbrojhdxk-ulmycxlfdq (MIP) and/or volume rendering reformats were acquired of the central intracranial vasculature and neck separately. COMPARISON: None. FINDINGS: Image quality: Excellent. BRAIN: CSF spaces: Basal cisterns are patent. No extra-axial fluid collections. Ventricles are normal in size and shape. Brain: No intracranial hemorrhage, mass, or mass effect. M[place]in[place]-white matter interface appears preserved. No abnormal intracranial enhancement. Skull and face: Calvarium and facial bones appear intact, without suspicious lesions. Orbits appear normal. Sinuses: Sinuses and mastoids are clear. HEAD CT ANGIOGRAPHY: Anterior circulation: Intracranial internal carotid arteries are normal in size and appear patent bilaterally. The paired anterior cerebral arteries appear patent bilaterally. The anterior communicating artery also appears patent. The middle cerebral arteries appear patent bilaterally. The middle cerebral arteries demonstrate a mildly beaded contour bilaterally with alternating areas of minimal narrowing. No high-grade stenosis, occlusion, or filling defects. No cerebral aneurysms identified. Posterior circulation: Visualized portions of the vertebral arteries demonstrate normal caliber, and join to form a patent basilar artery. The posterior cerebral arteries appears patent bilaterally. There is minimal beading also demonstrated in the posterior cerebral arteries. No high-grade stenosis, occlusion, or filling defects. No cerebral aneurysms identified. NECK CT ANGIOGRAPHY: Carotid system: The great vessels demonstrate a conventional anatomy as they arise from the aortic arch. The origins of the common carotid arteries appear patent. The common carotid arteries demonstrate normal caliber and courses. The bifurcation regions are both widely patent. The internal carotid arteries demonstrate normal calibers and courses. No focal stenosis or intimal flap to suggest dissection. Posterior circulation: The origins of the vertebral arteries both appear patent. The more superior extracranial portions of both vertebral arteries also demonstrate normal courses and calibers. They join to form a patent basilar artery. No focal stenosis or intimal flap to suggest dissection. Soft tissues: Visualized neck soft tissues demonstrate no suspicious abnormalities. Bones: No suspicious bony lesions. Visualized cervical spine demonstrates mild reversal the cervical lordosis. IMPRESSION: 1. No acute intracranial abnormality. 2. Mild beaded contour of the middle cerebral arteries bilaterally and minimal beading of the posterior cerebral arteries. The findings are nonspecific and the differential includes vasculitis or fibromuscular dysplasia among other etiologies. 3. No high-grade stenosis or occlusion of the central intracranial arteries. 4. No high-grade stenosis or occlusion of the head and neck arteries. No evidence of arterial dissection. Any quantitative measurements of stenosis were performed using NASCET criteria. Dictated by: Ayad Lr M.D. on 05/16/2020 at 12:23 Approved by: Ayad Lr M.D. on 05/16/2020 at 12:35 MDM Narrative Medical decision making narrative: Patient arrives with a feeling of shakiness inside of her head which is been increasing in intensity and frequency over the last 2 weeks but has been present for several years. She is seeking follow-up with Neurology but was told that it would be a year before she could see the neurologist at [facility]. Her labs do not show any acute findings. CTA shows mild beaded contour of the MCA bilaterally and minimal beating of the posterior cerebral arteries these are nonspecific findings at this time. Discussed with patient I would recommend that she does follow-up with Neurology based on her symptoms she has seen neurology at [place] [facility] about 7 or 8 years ago and she has been in contact with her physician to get a referral there. At this time she is not having any acute or emergent changes that would warrant admission but do feel patient would likely benefit from a MRI/MRI. An ask that she follow-up with her primary care to facilitate this. Stroke Core Measures Exclusion Criteria TPA in CVA: Symptom Onset >3 or 4.5 Hours (Prolong symptoms for several years.) Discharge Plan Departure Patient Disposition: Home Clinical Impression: Itzels Discharge Date/Time: 05/16/20 14:03 Activity Restrictions/Additional Instructions: Follow-up with your primary care physician in the next week, call for an appointment. There were some mild beaded changes on your imaging there is a wide differential and I would recommend speaking with her physician about possibly further imaging as well as referral to neurology at [facility] you were seen in the past. You may continue home medications as prescribed. Return to the ER for fevers, severe headaches, sudden vision changes, difficulty with speech, new weakness, numbness difficulty with ambulation or inability use her extremities, new chest pain shortness of breath or other new or concerning symptoms. Prescriptions: No Action sulfamethoxazole-trimethoprim [Bactrim DS] 800-160 mg tablet 1 tab PO Q12H Qty: 14 RF: 0 ondansetron 4 mg tablet,disintegrating 4 mg PO Q6H PRN (Reason: nausea and vomiting) Qty: 20 RF: 0 tramadol 50 mg tablet 50 mg PO TID PRN (Reason: pain) Qty: 7 RF: 0 oxycodone 5 mg tablet 5 mg PO Q6H PRN (Reason: pain) Qty: 30 RF: 0 ondansetron 4 mg tablet,disintegrating 4 mg PO Q6H PRN (Reason: nausea and vomiting) Qty: 14 RF: 0 Referrals: Zayra Ovalle [Primary Care Provider] -
--- NOTE | 2020-05-16 12:21 | DI.CT.S_ITS ---
PROCEDURE: CT ANGIO HEAD AND NECK INDICATIONS: shakiness in head and neck, more on right. History of distant trauma. TECHNIQUE: Pre-contrast 4.5 mm thick sections acquired from the foramen magnum to the vertex. After the administration of intravenous contrast, 1 mm thick sections acquired from the aortic arch through the [place] of [place]. Post-contrast 4.5 mm thick sections then re-acquired from the foramen magnum to the vertex. 3-dimensional lswgoxo-mlzftvijq-ljpaertxqp (MIP) and/or volume rendering reformats were acquired of the central intracranial vasculature and neck separately. COMPARISON: None. FINDINGS: Image quality: Excellent. BRAIN: CSF spaces: Basal cisterns are patent. No extra-axial fluid collections. Ventricles are normal in size and shape. Brain: No intracranial hemorrhage, mass, or mass effect. Mckinley-white matter interface appears preserved. No abnormal intracranial enhancement. Skull and face: Calvarium and facial bones appear intact, without suspicious lesions. Orbits appear normal. Sinuses: Sinuses and mastoids are clear. HEAD CT ANGIOGRAPHY: Anterior circulation: Intracranial internal carotid arteries are normal in size and appear patent bilaterally. The paired anterior cerebral arteries appear patent bilaterally. The anterior communicating artery also appears patent. The middle cerebral arteries appear patent bilaterally. The middle cerebral arteries demonstrate a mildly beaded contour bilaterally with alternating areas of minimal narrowing. No high-grade stenosis, occlusion, or filling defects. No cerebral aneurysms identified. Posterior circulation: Visualized portions of the vertebral arteries demonstrate normal caliber, and join to form a patent basilar artery. The posterior cerebral arteries appears patent bilaterally. There is minimal beading also demonstrated in the posterior cerebral arteries. No high-grade stenosis, occlusion, or filling defects. No cerebral aneurysms identified. NECK CT ANGIOGRAPHY: Carotid system: The great vessels demonstrate a conventional anatomy as they arise from the aortic arch. The origins of the common carotid arteries appear patent. The common carotid arteries demonstrate normal caliber and courses. The bifurcation regions are both widely patent. The internal carotid arteries demonstrate normal calibers and courses. No focal stenosis or intimal flap to suggest dissection. Posterior circulation: The origins of the vertebral arteries both appear patent. The more superior extracranial portions of both vertebral arteries also demonstrate normal courses and calibers. They join to form a patent basilar artery. No focal stenosis or intimal flap to suggest dissection. Soft tissues: Visualized neck soft tissues demonstrate no suspicious abnormalities. Bones: No suspicious bony lesions. Visualized cervical spine demonstrates mild reversal the cervical lordosis. IMPRESSION: 1. No acute intracranial abnormality. 2. Mild beaded contour of the middle cerebral arteries bilaterally and minimal beading of the posterior cerebral arteries. The findings are nonspecific and the differential includes vasculitis or fibromuscular dysplasia among other etiologies. 3. No high-grade stenosis or occlusion of the central intracranial arteries. 4. No high-grade stenosis or occlusion of the head and neck arteries. No evidence of arterial dissection. Any quantitative measurements of stenosis were performed using NASCET criteria. Dictated by: Ayad Lr M.D. on 05/16/2020 at 12:23 Approved by: Ayad Lr M.D. on 05/16/2020 at 12:35
[2020-05-16 12:52] LABS: Add Manual Diff / Slide Review NO; Basophils Absolute Auto 100 /uL (0-100); Eosinophils Absolute Auto 0 /uL (0-450); Eosinophils Percent Auto 0.8 % (2-4); Hemoglobin 12.9 g/dL (12.0-16.0); Lymphocytes Absolute Auto 1300 /uL (1100-4500); Lymphocytes Percent Auto 24.2 % (25-40); Mean Corpuscular HGB Conc 33.8 % (30-36); Mean Corpuscular Hemoglobin 30.2 PG (26-34); Mean Corpuscular Volume 89.2 fL (80-100); Monocytes Absolute Auto 300 /uL (0-900); Monocytes Percent Auto 6.5 % (3-14); Neutrophils Absolute Auto 3600 /uL (1500-7000); Neutrophils Percent Auto 67.5 % (50-75); Platelet Count 253 X10^3/uL (150-400); Red Blood Cell Count 4.26 X10^6/uL (4.0-5.2); Red Cell Distribution Width 12.6 % (11.6-14.8); White Blood Cell Count 5.3 X10^3/uL (4.5-11.0)
[2020-05-16 13:00] LABS: Alanine Aminotransferase 11 IU/L (<35); Albumin 4.2 g/dL (3.5-5.0); Albumin Globulin Ratio 1.6 (1.0-2.8); Alkaline Phosphatase 44 U/L (38-126); Aspartate Aminotransferase 20 IU/L (14-36); BUN Creatinine Ratio 15.1 (6-22); Bilirubin Total 0.6 mg/dL (0.2-1.3); Blood Urea Nitrogen 11 mg/dL (7-17); Calcium 9.1 mg/dL (8.4-10.2); Carbon Dioxide 27 mmol/L (22-32); Chloride 107 mmol/L (98-107); Estimated Glomerular Filt Rate > 60.0 mL/min (>60); Ethanol (ETOH) < 10 mg/dL; Globulin 2.7 g/dL (1.7-4.1); Glucose 89 mg/dL (70-100); HEMOLYSIS 32 (0-50); Potassium 4.3 mmol/L (3.4-5.1); Sodium 138 mmol/L (137-145); Total Protein 6.9 g/dL (6.3-8.2)
[2020-05-16 13:30] LABS: Thyroid Stimulating Hormone 1.17 uIU/mL (0.47-4.68)
[2020-05-16 14:03] LABS: UR Morphine/Opiate cutoff 300 Negative (Negative); Ur Creatinine Normal (Normal); Ur Specific Gravity Normal (Normal); Urine Amphetamines Negative (Negative); Urine Barbiturates Negative (Negative); Urine Benzodiazepines Negative (Negative); Urine Cocaine Negative (Negative); Urine MDMA Negative (Negative); Urine Methadone Negative (Negative); Urine Methamphetamines Negative (Negative); Urine Oxycodone Negative (Negative); Urine Phencyclidine Negative (Negative); Urine Tetrahydrocannabinol Negative (Negative); Urine Tricyclic Antidepressant Negative (Negative); Urine pH Normal (Normal)
== END 2020-05-16 14:03 | disposition home or self-care (01) ==
PROVIDERS: Emergency Provider Emergency Medicine; Family Provider Obstetrics & Gynecology; PCP Physician Assistant Medical
DX: R25.1 Tremor, unspecified (principal); R11.0 Nausea; R51.9 Headache, unspecified
CPT/HCPCS: 36415; 70496; 70498; 80053; 80305; 80320; 81003; 81025; 84443; 85025; 99284; Q9967

== ENCOUNTER 2022-08-31 09:11 | Emergency (ER) | payer OTHER, SELFPAY ==
[2022-08-31] VITALS (10 sets, daily range): BP systolic 98–105; BP diastolic 53–65; PULSE 69–94; RESP 14; TEMP 36.1; O2SAT 96–98; BMI 23.9
[2022-08-31 10:08] LABS: Add Manual Diff / Slide Review NO; Basophils Absolute Auto 0 /uL (0-100); Basophils Percent Auto 0.4 % (0-2); Eosinophils Absolute Auto 0 /uL (0-450); Eosinophils Percent Auto 0.2 % (2-4); Hematocrit 39.7 % (36-46); Hemoglobin 13.5 g/dL (12.0-16.0); Lymphocytes Absolute Auto 400 /uL (1100-4500); Lymphocytes Percent Auto 10.4 % (25-40); Mean Corpuscular HGB Conc 33.9 % (30-36); Mean Corpuscular Hemoglobin 30.2 PG (26-34); Mean Corpuscular Volume 89.1 fL (80-100); Monocytes Absolute Auto 300 /uL (0-900); Monocytes Percent Auto 6.6 % (3-14); Neutrophils Absolute Auto 3500 /uL (1500-7000); Neutrophils Percent Auto 82.4 % (50-75); Platelet Count 209 X10^3/uL (150-400); Red Blood Cell Count 4.45 X10^6/uL (4.0-5.2); Red Cell Distribution Width 12.6 % (11.6-14.8); White Blood Cell Count 4.2 X10^3/uL (4.5-11.0)
[2022-08-31 10:17] LABS: Amorphous Sediment Urine 1+; Ictotest Urine Negative (Negative); RBC Urine 0-1/HPF (0-5/HPF); Squamous Epithelial Cell Urine 1-5 /HPF (0-5/HPF); WBC Urine 1-5/HPF (0-5/HPF)
[2022-08-31 10:18] LABS: Bacteria Urine Occasional (0-1); Culture Indicated Urine Specimen Cultured
[2022-08-31 10:23] LABS: Alanine Aminotransferase 33 IU/L (<35); Albumin Globulin Ratio 1.3 (1.0-2.8); Alkaline Phosphatase 55 U/L (38-126); Aspartate Aminotransferase 36 IU/L (14-36); BUN Creatinine Ratio 12.5 (6-22); Bilirubin Total 0.6 mg/dL (0.2-1.3); Blood Urea Nitrogen 10 mg/dL (7-17); Calcium 7.9 mg/dL (8.4-10.2); Carbon Dioxide 24 mmol/L (22-32); Chloride 106 mmol/L (98-107); Estimated Glomerular Filt Rate > 60 mL/min (>60); Glucose 117 mg/dL (70-100); HEMOLYSIS < 15 (0-50); Lipase 94 U/L (23-300); Potassium 4.2 mmol/L (3.4-5.1); Sodium 139 mmol/L (137-145)
--- NOTE | 2022-08-31 11:21 | ED_ITS ---
HPI - Abdominal Pain General Chief Complaint: Abdominal Pain Stated Complaint: Abd Pain Rt side x7 days Time Seen by Provider: 08/31/22 11:20 Source: patient Mode of arrival: Ambulatory Limitations: no limitations History of Present Illness HPI narrative: This is a 42-year-old female with history of vestibular migraines, prior cholecystectomy and hernia repair who presents with 5 days abdominal pain which patient started sort of umbilical and is now moved to the right lower quadrant. Patient states settle little bit of flank pain today but not before. She is had fever 100 F last night, she is had nausea but no vomiting. She states she was a little bit constipated yesterday but had a bowel movement today that was sort of loose. No black or bloody stools. She states her bowel movements are usually typically loose after her cholecystectomy. No black or bloody stools. No dysuria, urgency or frequency. She is had some mild spotting vaginally but states she is due to start her menses around the or 07 of September. Patient states she has had ovarian cyst in her 20s she is unsure if this is sim ilar she states that was 20 years ago. Patient denies surgeries besides her cholecystectomy and hernia repair which was umbilical. No tobacco, no alcohol, no illicit. Patient had ibuprofen yesterday but none today. She has had Zofran for the nausea. Related Data Previous Rx's Medication Instructions Recorded ondansetron 4 mg disintegrating 4 mg PO Q6H PRN nausea and 12/07/19 tablet vomiting #20 tabs tramadol 50 mg tablet 50 mg PO TID PRN pain #7 tabs 12/07/19 oxycodone 5 mg tablet 5 mg PO Q6H PRN pain #30 tabs 12/23/19 ondansetron 4 mg disintegrating 4 mg PO Q6H PRN nausea and 12/25/19 tablet vomiting #14 tabs sulfamethoxazole 800 1 tab PO Q12H #14 tabs 01/07/20 mg-trimethoprim 160 mg tablet (Bactrim DS) tramadol 50 mg tablet 50 mg PO Q6H PRN pain #10 tabs 08/31/22 Allergies Allergy/AdvReac Type Severity Reaction Status Date / Time No Known Drug Allergies Allergy Verified 08/31/22 09:33 Review of Systems Review of Systems ROS Unobtainable: All systems reviewed & are unremarkable except as noted in HPI and below Patient History Medical History (Updated 08/31/22 @ 12:58 by Arlette Nesbitt DO) Cholelithiasis Umbilical hernia Surgical History History of third molar tooth extraction Social History household members: spouse Smoking Status: Never smoker alcohol intake: never Smoking Status: Never smoker Substance Use Type: does not use Exam Narrative Exam Narrative: GENERAL: Alert and oriented x three, [id number] distress. HEENT: Head normocephalic, atraumatic, EOMI, pupils reactive, face symmetric, moist mucous membranes NECK: Supple, full range of motion CARDIOVASCULAR: Regular rate and rhythm without murmurs, rubs or gallops. RESPIRATORY: Breath sounds equal bilaterally, no wheezes rales or rhonchi. ABDOMEN: Soft, positive for tenderness localized to the right lower quadrant. Normoactive bowel sounds all 4 quadrants. No guarding or rebound, rigidity, no mass : No CVA tenderness EXTREMITIES: Normal range of motion, no clubbing or edema. Neurovascularly intact NEUROLOGICAL: Cranial nerves II through XII grossly intact. Moving all extremities SKIN: Warm, dry, no petechiae, no rashes or lesions. Initial Vital Signs Initial Vital Signs: Vital Signs Temperature 97.0 F L 08/31/22 09:28 Pulse Rate 94 H 08/31/22 09:28 Respiratory Rate 14 08/31/22 09:28 Blood Pressure 105/65 08/31/22 09:28 Pulse Oximetry 98 08/31/22 09:28 Oxygen Delivery Method 08/31/22 09:28 Course Orders Ordered: ED Orders 08/31/22 09:40 Beta HCG, Quant [HCG Quantitative /Beta subunit] Stat Complete Blood Count AUTO DIFF Stat Comprehensive Metabolic Panel Stat Lipase Stat 08/31/22 11:49 CT abdomen pelvis w con Stat 08/31/22 12:59 US pelvic complete Stat Discontinued Medications Sodium Chloride (Normal Saline 0.9%) 1,000 mls @ 1,000 mls/hr IV BOLUS ONE Stop: 08/31/22 13:04 Last Infusion: 08/31/22 12:54 Dose: 0 mls/hr Documented By: Admin: 08/31/22 12:08 Dose: 1,000 mls/hr Documented By: OSIRIS(2) Ketorolac Tromethamine (Ketorolac 30 Mg/Ml Vial) 15 mg IV NOW ONE Stop: 08/31/22 11:50 Last Admin: 08/31/22 12:06 Dose: 15 mg Documented By: OSIRIS(2) Ondansetron HCl (Ondansetron 4 Mg/2 Ml Inj) 4 mg IV Q6HR PRN PRN Reason: Nausea And Vomiting Last Admin: 08/31/22 12:06 Dose: 4 mg Documented By: OSIRIS(2) Tramadol HCl (Tramadol 50 Mg Tablet) 100 mg PO NOW ONE Stop: 08/31/22 15:09 Last Admin: 08/31/22 15:17 Dose: 100 mg Documented By: NICOLÁS Vital Signs Vital signs: Vital Signs - 8 hr 08/31/22 12:50 08/31/22 12:51 08/31/22 12:51 Pulse Rate 74 73 Blood Pressure 98/53 L Pulse Oximetry 98 97 08/31/22 13:00 08/31/22 13:00 08/31/22 13:30 Pulse Rate 74 Blood Pressure 99/55 L 101/58 L Pulse Oximetry 96 08/31/22 13:30 08/31/22 14:29 08/31/22 14:30 Pulse Rate 69 81 Blood Pressure 102/58 L Pulse Oximetry 98 98 08/31/22 14:30 08/31/22 14:45 08/31/22 14:45 Pulse Rate 76 70 Blood Pressure 99/56 L Pulse Oximetry 98 98 08/31/22 15:00 08/31/22 15:00 08/31/22 15:15 Pulse Rate 75 Blood Pressure 105/61 105/62 Pulse Oximetry 97 08/31/22 15:15 Pulse Rate 73 Blood Pressure Pulse Oximetry 97 MDM - Abdominal Pain Lab Data 08/31/22 09:40 08/31/22 09:40 Labs: Lab Results 08/31/22 08/31/22 08/31/22 Range/Units 09:33 09:33 09:40 WBC 4.2 L (4.5-11.0) X10^3/uL RBC 4.45 (4.0-5.2) X10^6/uL Hgb 13.5 (12.0-16.0) g/dL Hct 39.7 (36-46) % MCV 89.1 (80-100) fL MCH 30.2 (26-34) PG MCHC 33.9 (30-36) % RDW 12.6 (11.6-14.8) % Plt Count 209 (150-400) X10^3/uL Neut % (Auto) 82.4 H (50-75) % Lymph % (Auto) 10.4 L (25-40) % [place] % (Auto) 6.6 (3-14) % Eos % (Auto) 0.2 L (2-4) % Baso % (Auto) 0.4 (0-2) % Neut # (Auto) 3500 (5111-9006) /uL Lymph # (Auto) 400 L (7199-5873) /uL [place] # (Auto) 300 (0-900) /uL Eos # (Auto) 0 (0-450) /uL Baso # (Auto) 0 (0-100) /uL Sodium (137-145) mmol/L Potassium (3.4-5.1) mmol/L Chloride (98-107) mmol/L Carbon Dioxide (22-32) mmol/L BUN (7-17) mg/dL Creatinine (0.52-1.04) mg/dL Estimated GFR (>60) mL/min BUN/Creatinine Ratio (6-22) Glucose (70-100) mg/dL Calcium (8.4-10.2) mg/dL Total Bilirubin (0.2-1.3) mg/dL AST (14-36) IU/L ALT (<35) IU/L Alkaline Phosphatase (38-126) U/L Total Protein (6.3-8.2) g/dL Albumin (3.5-5.0) g/dL Globulin (1.7-4.1) g/dL Albumin/Globulin Ratio (1.0-2.8) Lipase (23-300) U/L HCG, Quant mIU/mL Ur Bilirubin Confirm Negative (Negative) Urine RBC 0-1/hpf (0-5/HPF) Urine WBC 1-5/hpf (0-5/HPF) Ur Squamous Epith Cells 1-5 /hpf (0-5/HPF) Amorphous Sediment 1+ Urine Bacteria Occasional (0-1) (None) Ur Culture Indicated? Specimen cultured 08/31/22 08/31/22 Range/Units 09:40 09:40 WBC (4.5-11.0) X10^3/uL RBC (4.0-5.2) X10^6/uL Hgb (12.0-16.0) g/dL Hct (36-46) % MCV (80-100) fL MCH (26-34) PG MCHC (30-36) % RDW (11.6-14.8) % Plt Count (150-400) X10^3/uL Neut % (Auto) (50-75) % Lymph % (Auto) (25-40) % [place] % (Auto) (3-14) % Eos % (Auto) (2-4) % Baso % (Auto) (0-2) % Neut # (Auto) (9707-8871) /uL Lymph # (Auto) (4354-6332) /uL [place] # (Auto) (0-900) /uL Eos # (Auto) (0-450) /uL Baso # (Auto) (0-100) /uL Sodium 139 (137-145) mmol/L Potassium 4.2 (3.4-5.1) mmol/L Chloride 106 (98-107) mmol/L Carbon Dioxide 24 (22-32) mmol/L BUN 10 (7-17) mg/dL Creatinine 0.80 (0.52-1.04) mg/dL Estimated GFR > 60 (>60) mL/min BUN/Creatinine Ratio 12.5 (6-22) Glucose 117 H (70-100) mg/dL Calcium 7.9 L (8.4-10.2) mg/dL Total Bilirubin 0.6 (0.2-1.3) mg/dL AST 36 (14-36) IU/L ALT 33 (<35) IU/L Alkaline Phosphatase 55 (38-126) U/L Total Protein 7.0 (6.3-8.2) g/dL Albumin 4.0 (3.5-5.0) g/dL Globulin 3.0 (1.7-4.1) g/dL Albumin/Globulin Ratio 1.3 (1.0-2.8) Lipase 94 (23-300) U/L HCG, Quant < 2.4 mIU/mL Ur Bilirubin Confirm (Negative) Urine RBC (0-5/HPF) Urine WBC (0-5/HPF) Ur Squamous Epith Cells (0-5/HPF) Amorphous Sediment Urine Bacteria (None) Ur Culture Indicated? Point of care testing: Point of Care Testing Test Results Negative Urine Dip Bedside Urine Glucose Negative Bedside Urine Bilirubin ++ 2 Bedside Urine Ketone - Negative Urine Specific [place] 1.010 Bedside Urine Occult Blood - Negative Bedside Urine pH 7.5 Bedside Urine Protein + 30 Bedside Urine Urobilinogen 2+ 4mg Bedside Urine Nitrite - Negative Bedside Urine Leukocytes + [address] scan - abdomen/pelvis: Radiologist's Impression: [address] [address] [address] Scan Report Signed Patient: Lia Cole MR#: [id number] : 1980 Acct:[id number] Age/Sex: 42 / F Date of Service: 08/31/22 Loc: ED Accession Number: [id number] ?? Procedure: CT abdomen pelvis w con Ordering Provider: Arlette Nesbitt D.O. PROCEDURE:? CT ABDOMEN PELVIS W CON ? INDICATIONS:? RLQ pain x 5 days. ? TECHNIQUE:? After the administration of intravenous contrast, axial sections acquired from the lung bases to the pubic symphysis.? Coronal and sagittal reformats were performed.? For radiation dose reduction, the following was used:? automated exposure control, adjustment of mA and/or kV according to patient size.? ? COMPARISON:? [facility], CT, CT ABDOMEN PELVIS W CON, 12/25/2019, 16:10. ? FINDINGS:? Image quality:? Excellent.? ? Lung bases:? Unremarkable. Heart:? No significant findings. ? ABDOMEN: Liver:? Normal size and overall attenuation.? Segment four B and segment six hypodensities, likely cysts or benign hemangiomas.? No suspicious lesion. Gallbladder:? Surgically absent. Biliary ducts:? Appropriate post cholecystectomy. Pancreas:? Normal. Spleen:? Normal size. Adrenal Glands:? No nodules. Kidneys and Ureters:? Several subcentimeter bilateral cortical cysts.? No hydronephrosis or definite nephrolithiasis.? No visible hydroureter. ? Stomach and Bowel:? The stomach is filled with fluid and demonstrates an air- fluid level. ?Small bowel loops, and colon are unremarkable.? Normal appendix. Peritoneum:? No peritoneal inflammation.? Small to moderate amount of fluid in the pelvis, more so in the right adnexa. ? Ventral Wall: ? No hernias.? Abdominal Nodes:? Mildly prominent left mid abdominal mesenteric nodes.? No suspicious bulky adenopathy. Vessels:? Retrocaval left renal vein.? Normal caliber aorta and IVC. ? PELVIS: Pelvic Organs:? Involuted peripherally hypervascular thick-walled cyst in the right adnexa.? There is trace amorphous hyperdense material just posterior adjacent to this area.? There is moderate amount of right adnexal fluid.? Mild hyperemia of right adnexal vessels.? Mild left adnexal fluid.? No left ovarian enlargement.? Retroverted uterus. Bladder:? Unremarkable.? ? Pelvic Nodes: No enlarged lymph nodes.? Miscellaneous: No hernias are seen. ? ? ? Bones:? Unremarkable.? IMPRESSION:? ? 1. Normal appendix. ? 2. Probable rupture of right ovarian hemorrhagic cyst.? ? ? Dictated by: Kriss Linares M.D. on 08/31/2022 at 11:44 ? ? Approved by: Kriss Linares M.D. on 08/31/2022 at 11:51? MDM Narrative Medical decision making narrative: This is a 42-year-old female who comes in with complaint of right lower quadrant pain that has been progressing started umbilical no then moved to right lower quadrant. Discussed differential with patient my suspicion is highest for appendicitis, ovarian cyst, bowel obstruction, colitis or other causes possibly kidney stone or pyelonephritis but patient's labs show slightly low white count at 4 point, leftward shift with neutrophils. Coags are negative, renal functions normal glucose is 117 with normal LFTs and lipase. Urine does not show clear signs of infection, point of care urine is negative for . Patient's exam is suspicious for appendicitis. CT abdomen pelvis shows ruptured likely hemorrhagic right ovarian cyst. Appendix appears normal. Patient has some mild lymph not see but no other significant changes some mild hyperemia. Patient pains pretty well controlled pressure is 100-90 range she states she normally runs low, discussed with patient and will add a pelvic ultrasound. Also added hCG quantitative my suspicion for ectopic is low but felt appropriate. Discharge Plan Departure Patient Disposition: Home Clinical Impression: Rupture of cyst of right ovary Instructions: DI for Ovarian Cyst Activity Restrictions/Additional Instructions: Follow-up for recheck if your symptoms are not improving next week. You may take Tylenol up to a 1000 mg every hours and or ibuprofen up to 800 mg every 8 hours. If in adequate for pain you can take tramadol 1-2 tablets every 6 hours as needed. This medication can make you sleepy do not drive, perform hazardous activities or make any major decisions while taking it. This medication will make you constipated please take a stool softener once to twice daily until stools are soft and regular. Prescription sent to [facility]. Please return for fevers worsening abdominal, back or flank pain, persistent vomiting, lightheadedness or passing out, new urinary issues or other new or concerning changes. Prescriptions: New tramadol 50 mg tablet 50 mg PO Q6H PRN (Reason: pain) Qty: 10 0RF No Action sulfamethoxazole-trimethoprim [Bactrim DS] 800-160 mg tablet 1 tab PO Q12H Qty: 14 0RF ondansetron 4 mg tablet,disintegrating 4 mg PO Q6H PRN (Reason: nausea and vomiting) Qty: 20 0RF tramadol 50 mg tablet 50 mg PO TID PRN (Reason: pain) Qty: 7 0RF oxycodone 5 mg tablet 5 mg PO Q6H PRN (Reason: pain) Qty: 30 0RF ondansetron 4 mg tablet,disintegrating 4 mg PO Q6H PRN (Reason: nausea and vomiting) Qty: 14 0RF Referrals: Zayra Ovalle [Primary Care Provider] - Stand Alone Forms: Patient Portal/API
--- NOTE | 2022-08-31 11:49 | DI.CT.S_ITS ---
PROCEDURE: CT ABDOMEN PELVIS W CON INDICATIONS: RLQ pain x 5 days. TECHNIQUE: After the administration of intravenous contrast, axial sections acquired from the lung bases to the pubic symphysis. Coronal and sagittal reformats were performed. For radiation dose reduction, the following was used: automated exposure control, adjustment of mA and/or kV according to patient size. COMPARISON: [facility], CT, CT ABDOMEN PELVIS W CON, 12/25/2019, 16:10. FINDINGS: Image quality: Excellent. Lung bases: Unremarkable. Heart: No significant findings. ABDOMEN: Liver: Normal size and overall attenuation. Segment four B and segment six hypodensities, likely cysts or benign hemangiomas. No suspicious lesion. Gallbladder: Surgically absent. Biliary ducts: Appropriate post cholecystectomy. Pancreas: Normal. Spleen: Normal size. Adrenal Glands: No nodules. Kidneys and Ureters: Several subcentimeter bilateral cortical cysts. No hydronephrosis or definite nephrolithiasis. No visible hydroureter. Stomach and Bowel: The stomach is filled with fluid and demonstrates an air-fluid level. Small bowel loops, and colon are unremarkable. Normal appendix. Peritoneum: No peritoneal inflammation. Small to moderate amount of fluid in the pelvis, more so in the right adnexa. Ventral Wall: No hernias. Abdominal Nodes: Mildly prominent left mid abdominal mesenteric nodes. No suspicious bulky adenopathy. Vessels: Retrocaval left renal vein. Normal caliber aorta and IVC. PELVIS: Pelvic Organs: Involuted peripherally hypervascular thick-walled cyst in the right adnexa. There is trace amorphous hyperdense material just posterior adjacent to this area. There is moderate amount of right adnexal fluid. Mild hyperemia of right adnexal vessels. Mild left adnexal fluid. No left ovarian enlargement. Retroverted uterus. Bladder: Unremarkable. Pelvic Nodes: No enlarged lymph nodes. Miscellaneous: No hernias are seen. Bones: Unremarkable. IMPRESSION: 1. Normal appendix. 2. Probable rupture of right ovarian hemorrhagic cyst. Dictated by: Kriss Linares M.D. on 08/31/2022 at 11:44 Approved by: Kriss Linares M.D. on 08/31/2022 at 11:51
[2022-08-31] MEDS: KETOROLAC 30 MG/ML VIAL 15 MG IV (12:06)
[2022-08-31] MEDS: ONDANSETRON 4 MG/2 ML INJ IV (12:06)
[2022-08-31] MEDS: SODIUM CHLORIDE 0.9% 1,000 ML 1000 ML IV (12:08)
--- NOTE | 2022-08-31 12:59 | DI.US.S_ITS ---
PROCEDURE: US PELVIC COMPLETE INDICATIONS: right ruptured ovarian cyst TECHNIQUE: Real-time scanning was performed of the pelvic organs, with image documentation. Additional endovaginal scanning was necessary due to incomplete visualization of the adnexal and endometrial structures by transabdominal scanning. COMPARISON: [facility], CT, CT ABDOMEN PELVIS W CON, 08/31/2022, 12:03. [facility], US, PELVIC COMPLETE, 04/05/2016, 12:14. FINDINGS: Uterus: Uterus is retroverted and normal in size at 8.6 x 5.2 x 5.2 cm. The myometrium is slightly heterogeneous with a small hypoechoic myometrial mass in the left fundus measuring 7 mm, potentially a fibroid. The endometrium measures 11.8 mm combined thickness. Normal vascularity. Ovaries: The right ovary measures 3.9 x 2.6 by 2.0 cm, with a calculated ovarian volume of 10.5 cc. The left ovary measures 2.2 x 1.4 x 0.7 cm, with a calculated ovarian volume of 1.1 cc. There is a peripherally vascular ovoid structure within the right ovary with heterogeneous intrinsic echoes. The left ovary contains a single dominant follicle. No adnexal masses are seen. Other: Mildly increased amount of slightly complex free pelvic fluid compatible with CT appearance. There is normal vascularity in each ovary. IMPRESSION: 1. Involuted peripherally hypervascular right corpus luteum, probably recently ruptured given quantity of mildly complex fluid seen in the pelvis. Findings are consistent with CT appearance. 2. Minimally heterogeneous uterus with probably mild fibroid change. 3. Normal left ovary. We strive to produce accurate, complete, and clear reports of imaging services. To assist us in improving patient care, this report was composed using standard report templates and voice recognition software. Therefore, it may contain abnormal punctuation, insertions and/or omissions. Occasional wrong-word or sound-alike substitutions may occur. Though we review the report and make efforts to correct it, we do recommend that the report be read carefully in proper context to recognize any text inaccuracies. Dictated by: Kriss Linares M.D. on 08/31/2022 at 13:54 Approved by: Kriss Linares M.D. on 08/31/2022 at 13:59
[2022-08-31 13:39] LABS: HCG Quantitative /Beta subunit < 2.4 mIU/mL
[2022-08-31] MEDS: TRAMADOL 50 MG TABLET 100 MG PO (15:17)
== END 2022-08-31 15:22 | disposition home or self-care (01) ==
PROVIDERS: Emergency Provider Emergency Medicine; Family Provider Obstetrics & Gynecology; PCP Physician Assistant Medical
DX: N83.201 Unspecified ovarian cyst, right side (principal)
CPT/HCPCS: 36415; 74177; 76830; 76856; 80053; 81003; 81015; 81025; 83690; 84702; 85025; 87086; 93975; 96361; 96374; 96375; 99284; J1885; J2405; Q9967

== ENCOUNTER → 2024-06-13 14:45 | Outpatient (CLI) | payer OTHER, SELFPAY ==
--- NOTE | 2024-06-13 14:46 | DI.MG.S_ITS ---
BILATERAL DIGITAL SCREENING MAMMOGRAM 3D/2D WITH CAD: 06/13/2024 CLINICAL: Routine screening. Family history of breast cancer. No prior exams were available for comparison. The breasts are heterogeneously dense, which may obscure small masses (category c / 51-75% glandular tissue). Current study was also evaluated with a Computer Aided Detection (CAD) system. There are benign diffuse calcifications in both breasts. No significant masses, calcifications, or other findings are seen in either breast. IMPRESSION: BENIGN There is no mammographic evidence of malignancy. A 1 year screening mammogram is recommended. Based on Tyrer-Cuzick model (a risk assessment model), the patient's lifetime risk is 24.0% and her 10 year risk is 3.5%. If a patient has an elevated risk, a more comprehensive evaluation should be considered and/or a referral to a genetic counselor. The [place] [employer], [place] [employer], and NCCN Guidelines advise the consideration of Breast MRI as an adjunct to screening mammography in patients whose Lifetime risk to develop breast cancer is 20% or higher. This exam was interpreted at Station ID: [id number]. NOTE: For mammograms, a report in lay terms will be sent to the patient. Approximately 15% of breast malignancies will not be visualized mammographically. In the management of a palpable breast mass, a negative mammogram must not discourage biopsy of a clinically suspicious lesion. Electronically Signed By: Desmond bradford/carmencita:06/14/2024 00:45:54 letter sent: Normal Exam ACR BI-RADS Category 2: Benign
== END ==
PROVIDERS: Family Provider Obstetrics & Gynecology; PCP Internal Medicine; Referring Provider Internal Medicine; Visit Provider Internal Medicine
DX: Z12.31 Encounter for screening mammogram for malignant neoplasm of breast (principal); Z80.3 Family history of malignant neoplasm of breast; R92.333 Mammographic heterogeneous density, bilateral breasts
CPT/HCPCS: 77063; 77067